=== PATIENT | male | born 1970 | race Caucasian/White ===

== ENCOUNTER 2022-12-21 16:24 | Outpatient (CLI) | payer MEDICAID, SELFPAY ==
[2022-12-21 14:34] LABS: Calculated LDL 107 mg/dL (<100); Cholesterol 217 mg/dL (<200); HDL Cholesterol 31 mg/dL (40-60); Triglyceride 398 mg/dL (<150)
[2022-12-22 10:19] LABS: Hepatitis C Ab w Rflx HCV PCR Negative (Negative)
[2022-12-22 11:09] LABS: HIV-1/2 Ag & Ab Screen Negative (Negative)
== END 2022-12-21 16:25 | disposition home or self-care (01) ==
LOC: LBO 16:24
PROVIDERS: Visit Provider Nurse Practitioner Family
DX: E78.5 Hyperlipidemia, unspecified (principal); Z11.4 Encounter for screening for human immunodeficiency virus [HIV]; Z11.59 Encounter for screening for other viral diseases
CPT/HCPCS: 36415; 80061; 86803; 87389

== ENCOUNTER 2023-03-18 08:54 | Emergency (ER) | payer MEDICAID, SELFPAY ==
[2023-03-18 08:58] VITALS: BP 113/90; PULSE 103; RESP 20; TEMP 36.3; O2SAT 96
--- OUTSIDE RECORDS SUMMARY | 2023-03-18 09:00 | XMS_ITS | Continuity of Care Document ---
Author Name Unknown Organization [facility] Address [address] [place] [address] Encounter LTTL_NM FIN [id number] [id number] Date(s): 12/05/22 - 12/13/22 [facility] [address] [place], [place] [address] Encounter Diagnosis Altered mental status(Discharge Diagnosis) - 12/06/22 Diabetes(Discharge Diagnosis) - 12/06/22 Bacteremia(Discharge Diagnosis) - 12/06/22 Hypertension(Discharge Diagnosis) - 12/13/22 Discharge Disposition: Home or Self Care Attending Physician: Douglas Turner MD Admitting Physician: Douglas Turner MD Allergies, Adverse Reactions, Alerts No Known Medication Allergies Functional Status 12/13/22 Living Environment Living Situation: [facility] with family care Current Home Treatments: Home Devices/Equipment Professional Skilled Services: Special Services and Community Resources: Sensory Deficits: Performed by: Kathrine Paulson-12/06/22 04:58:00 Lives With Family Living Situation Home with family car e 12/13/22 Lunch Percent 100 12/13/22 Activity Status ADL Up to toilet 12/11/22 ADLs Independent 12/09/22 Personal Care Provided Gown change, Partial bath 12/08/22 Breakfast Percent 100 12/06/22 Dinner Percent 100 12/06/22 Assistive Device Walker 12/06/22 Positioning/Pressure Reducing Devices Pi llow 12/06/22 Recent Travel History No recent travel Other exposure to Infectious Disease Non e Medications No Known Medications Mental Status 12/13/22 Eye Opening Response [place] Spontaneous ly Best Verbal Response [place] Oriented Best Motor Response [place] Obeys comman ds Gautam Coma Score 15 Problem List Condition Confirmation Course Effective Dates Status Health [facility] Informant Diabetes Confirmed Active Results Laboratory List Name Date SARS-CoV-2 (COVID-19) PCR ([facility]) (C OVID 19 ([facility])) 12/12/22 Glucose POCT 12/10/22 Glucose POCT 12/10/22 Glucose POCT 12/09/22 Automated Diff 12/07/22 CBC w/ Diff 12/07/22 Comprehensive Metabolic Panel (CMP) 12/07 C-Reactive Protein 12/06/22 Hgb A1c (Hemoglobin A1C) 12/06/22 Sedimentation Rate (ESR) 12/06/22 TSH w/ Rflx to Free T4 12/06/22 Vitamin B12 & Folate Level 12/06/22 Drug Screen Urine 12/05/22 Urinalysis with Micro if Indicated and C ulture if Indicated 12/05/22 Misc Lab order 12/05/22 Automated Diff 12/05/22 Alcohol Lvl 12/05/22 Beta Hydroxybutyrate 12/05/22 CBC w/ Diff 12/05/22 Comprehensive Metabolic Panel 12/05/22 Lactic Acid 12/05/22 Magnesium Level 12/05/22 PT/ INR 12/05/22 Troponin-I 12/05/22 pH Venous 12/05/22 Most recent to oldest [Reference Range]: 1 2 3 WBC [4.8-10.8 K/mcL] 8.7 K/mcL (12/07/22 6:40 AM) 10.7 K/mcL (12/05/22 5:18 PM) RBC [4.20-6.10 Million/mcL] 5.09 Million /mcL (12/07/22 6:40 AM) 5.21 Million/mcL (12/05/22 5:18 PM) Neutro Auto [42.2-75.2 %] 53.3 % (12/07/22 6:40 AM) 57.2 % (12/05/22 5:18 PM) Lymph Auto [20.5-51.1 %] 34.3 % (12/07/22 6:40 AM) 31.4 % (12/05/22 5:18 PM) [place] Auto [1.7-9.3 %] 9.4 % *HI* (12/07/22 6:40 AM) 9.3 % (12/05/22 5:18 PM) Basophil Auto [0.0-0.8 %] 0.8 % (12/07/22 6:40 AM) 0.7 % (12/05/22 5:18 PM) Prothrombin Time [9.1-10.6 seconds] 11.3 seconds *HI* (12/05/22 5:18 PM) INR [0.9-1.1] 1.1 (12/05/22 5:18 PM) BUN [8-26 mg/dL] 12 mg/dL (12/07/22 6:40 AM) 12 mg/dL (12/05/22 5:18 PM) Glucose POC 192 *NA* (12/10/22 12:55 PM) 237 *NA* (12/10/22 8:42 AM) 222 *NA* (12/09/22 4:35 PM) U Amph Scrn [Negative] Negative (12/05/22 9:00 PM) UA Color [Yellow] Yellow (12/05/22 9:00 PM) Glucose Level [74-106 mg/dL] 260 mg/dL *HI* (12/07/22 6:40 AM) 205 mg/dL *HI* (12/05/22 5:18 PM) Potassium Level [3.5-5.1 mmol/L] 3.8 mmol/L (12/07/22 6:40 AM) 3.2 mmol/L *LOW* (12/05/22 5:18 PM) Baso Absolute [0.0-0.2 K/mcL] 0.1 K/mcL (12/07/22 6:40 AM) 0.1 K/mcL (12/05/22 5:18 PM) U Benzodia Scrn [Negative] Negative (12/05/22 9:00 PM) MCV [80.0-94.0 fL] 89.0 fL (12/07/22 6:40 AM) 87.9 fL (12/05/22 5:18 PM) UA Urobilinogen [0.2] 0.2 (12/05/22 9:00 PM) UA Bili [Negative] Small *ABN* (12/05/22 9:00 PM) CRP [<=10.0 mg/L] 18.2 mg/L *HI* (12/06/22 6:30 AM) UA Ketones [Negative] 40 *ABN* (12/05/22 9:00 PM) AST [15-41 IntlUnit/L] 28 IntlUnit/L (12/07/22 6:40 AM) 35 IntlUnit/L (12/05/22 5:18 PM) ALT [17-63 IntlUnit/L] 33 IntlUnit/L (12/07/22 6:40 AM) 36 IntlUnit/L (12/05/22:18 PM) MCHC [32.0-36.0 g/dL] 33.1 g/dL (12/07/22 6:40 AM) 33.2 g/dL (12/05/22:18 PM) Osmolality [275-295 mOsm/kg] 279 mOsm/kg (12/07/22 6:40 AM) 270 mOsm/kg *LOW* (12/05/22:18 PM) Troponin-I [<=0.05 ng/mL] 0.01 ng/mL (12/05/22:18 PM) Sodium Level [134-143 mmol/L] 135 mmol/L (12/07/22 6:40 AM) 132 mmol/L *LOW* (12/05/22:18 PM) Folate Level [>=5.9 ng/mL] 17.1 ng/mL (12/06/22 6:30 AM) UA Leuk Est [Negative] Negative (12/05/22 9:00 PM) Lymph Absolute [1.2-3.4 K/mcL] 3.0 K/mcL (12/07/22 6:40 AM) 3.4 K/mcL (12/05/22:18 PM) UA Nitrite [Negative] Negative (12/05/22 9:00 PM) UA Glucose [Negative] Negative (12/05/22 9:00 PM) Hct [42.0-52.0 %] 45.3 % (12/07/22 6:40 AM) 45.8 % (12/05/22:18 PM) U Cocaine Scrn [Negative] Negative (12/05/22 9:00 PM) Calcium Level [8.9-10.3 mg/dL] 9.3 mg/dL (12/07/22 6:40 AM) 9.3 mg/dL (12/05/22 5:18 PM) [place] Absolute [0.1-0.6 K/mcL] 0.8 K/mcL *HI* (12/07/22 6:40 AM) 1.0 K/mcL *HI* (12/05/22 5:18 PM) Albumin Level [3.5-5.0 g/dL] 4.1 g/dL (12/07/22 6:40 AM) 4.3 g/dL (12/05/22 5:18 PM) Protein Total [6.5-8.1 g/dL] 7.7 g/dL (12/07/22 6:40 AM) 7.8 g/dL (12/05/22 5:18 PM) UA Protein [Negative] Negative (12/05/22 9:00 PM) MCH [27.0-31.0 pg] 29.5 pg (12/07/22 6:40 AM) 29.2 pg (12/05/22 5:18 PM) Magnesium Level [1.8-2.5 mg/dL] 2.1 mg/dL (12/05/22 5:18 PM) Neutro Absolute [1.4-6.5 K/mcL] 4.6 K/mcL (12/07/22 6:40 AM) 6.1 K/mcL (12/05/22 5:18 PM) Bilirubin Total [0.2-1.2 mg/dL] 0.4 mg/dL (12/07/22 6:40 AM) 0.7 mg/dL (12/05/22 5:18 PM) Hgb [14.0-18.0 g/dL] 15.0 g/dL (12/07/22 6:40 AM) 15.2 g/dL (12/05/22:18 PM) B12 Level [180-914 pg/mL] 784 pg/mL (12/06/22 6:30 AM) Alk Phos [38-130 IntlUnit/L] 73 IntlUnit /L (12/07/22 6:40 AM) 80 IntlUnit/L (12/05/22 5:18 PM) UA Blood [Negative] Negative (12/05/22 9:00 PM) MPV [7.4-10.4 fL] 10.8 fL *HI* (12/07/22 6:40 AM) 10.6 fL *HI* (12/05/22 5:18 PM) Ethanol Level [0.00-0.08 g/dL] see comment g/dL 1 *NA* (12/05/22:18 PM) UA Spec Grav >=1.030 *NA* (12/05/22 9:00 PM) Platelets [130-400 K/mcL] 280 K/mcL (12/07/22 6:40 AM) 278 K/mcL (12/05/22:18 PM) CO2 [22-32 mmol/L] 21 mmol/L *LOW* (12/07/22 6:40 AM) 23 mmol/L (12/05/22 5:18 PM) Eos Absolute [0.0-0.2 K/mcL] 0.1 K/mcL (12/07/22 6:40 AM) 0.1 K/mcL (12/05/22:18 PM) U Janet Scrn [Negative] Negative (12/05/22 9:00 PM) Lactic Acid Lvl [0.5-2.2 mmol/L] 1.0 mmol/L (12/05/22 5:18 PM) TSH [0.45-5.33 mIntlUnit/mL] 1.43 mIntlU nit/mL (12/06/22 6:30 AM) UA pH 5.00 *NA* (12/05/22 9:00 PM) pH Naeem [7.32-7.42 pH unit(s)] 7.51 pH unit(s) *HI* (12/05/22 5:18 PM) U Opiate Scrn [Negative] Negative (12/05/22 9:00 PM) eAvg Glucose 286 *NA* (12/06/22 6:30 AM) UA Appear [Clear] Clear (12/05/22 9:00 PM) Chloride Level [98-111 mmol/L] 108 mmol/L (12/07/22 6:40 AM) 99 mmol/L (12/05/22 5:18 PM) U Oxy Scrn [Negative] Negative (12/05/22 9:00 PM) U PCP Scrn [Negative] Negative (12/05/22 9:00 PM) RDW-CV [11.5-14.5 %] 13.0 % (12/07/22 6:40 AM) 12.9 % (12/05/22 5:18 PM) A/G Ratio 1.1 *NA* (12/07/22 6:40 AM) 1.2 *NA* (12/05/22 5:18 PM) BUN/Creat Ratio [8.0-20.0] 13.8 (12/07/22 6:40 AM) 15.4 (12/05/22 5:18 PM) Globulin 3.6 *NA* (12/07/22 6:40 AM) 3.5 *NA* (12/05/22 5:18 PM) U THC Scr [Negative] Negative (12/05/22 9:00 PM) U PPX Scr [Negative] Negative (12/05/22 9:00 PM) U Methadone Scr [Negative] Negative (12/05/22 9:00 PM) Imm Gran Absolute 0.10 *NA* (12/07/22 6:40 AM) 0.05 *NA* (12/05/22 5:18 PM) Imm Gran Auto [0.0-0.5 %] 1.1 % *HI* (12/07/22 6:40 AM) 0.5 % (12/05/22 5:18 PM) Urine Srce Clean Catch (12/05/22 9:00 PM) U Buprenorph Scr [Negative] Negative (12/05/22 9:00 PM) U mAMP Scr [Negative] Negative (12/05/22 9:00 PM) U TCA Scr [Negative] Negative (12/05/22 9:00 PM) Hgb A1c Percent [4.0-6.0 %] 11.6 % *HI* (12/06/22 6:30 AM) .Hb 14.5 g/dL *NA* (12/06/22 6:30 AM) .Hgb A1c 1.5 g/dL *NA* (12/06/22 6:30 AM) SARS-CoV-2 (COVID-19) PCR ([facility]) [Negative] Negative (12/12/22 12:00 PM) Creatinine Level [0.61-1.24 mg/dL] 0.87 mg/dL (12/07/22 6:40 AM) 0.78 mg/dL (12/05/22 5:18 PM) Employed in healthcare? No *NA* (12/12/22 12:00 PM) Symptomatic as defined by CDC? No *NA* (12/12/22 12:00 PM) Hospitalized due to COVID-19? No *NA* (12/12/22 12:00 PM) In ICU? No *NA* (12/12/22 12:00 PM) Group care resident? No *NA* (12/12/22 12:00 PM) status? Not *NA* (12/12/22 12:00 PM) Anion Gap [3.0-12.0] 6.0 (12/07/22 6:40 AM) 10.0 (12/05/22 5:18 PM) Beta-Hydroxybutyrate [0.02-0.27 mmol/L] 0.99 mmol/L *HI* (12/05/22 5:18 PM) Eos, Auto [0.00-3.00 %] 1.10 % (12/07/22 6:40 AM) 0.90 % (12/05/22 5:18 PM) Instr Ethanol Lvl [<=5 mg/dL] <5 mg/dL (12/05/22 5:18 PM) eGFR CKD-EPI [>=60 mL/min/1.73 m2] 105 mL/min/1.73 m2 (12/07/22 6:40 AM) 109 mL/min/1.73 m2 (12/05/22 5:18 PM) Miscellaneous Lab Test See scan report *NA* (12/05/22 5:29 PM) ESR, Westergren [0-15 mm/hr] 46 mm/hr *HI* (12/06/22 6:30 AM) 1Result Comment: Unable to calculate ratio value as result is less than the linear limit. Orders for Microbiology Reports Name Date Blood Culture 12/06/22 Blood Culture 12/06/22 Blood Culture 12/05/22 Blood Culture 12/05/22 Microbiology Reports TEST:Blood Culture STATUS:Auth (Verified) BODY SITE:Left Hand SOURCE:Peripheral Blood COLLECTED DATE/TIME:12/06/22 9:52 AM FINAL REPORT No growth at 5 days. TEST:Blood Culture STATUS:Auth (Verified) BODY SITE:Left Arm SOURCE:Peripheral Blood COLLECTED DATE/TIME:12/06/22 9:40 AM FINAL REPORT No growth at 5 days. TEST:Blood Culture STATUS:Auth (Verified) BODY SITE:Right Hand SOURCE:Blood COLLECTED DATE/TIME:12/05/22 5:29 PM FINAL REPORT No growth at 5 days. TEST:Blood Culture STATUS:Auth (Verified) BODY SITE:Right Arm SOURCE:Blood COLLECTED DATE/TIME:12/05/22 5:29 PM FINAL REPORT Gram Positive Bacilli Staphylococcus species (by PCR) Called and read back by Beckie Neely 12/06/2022 08:38:55/ns Coagulase Negative Staphylococcus. No further studies unless requested. Bacillus species, not anthracis. Susceptibility is not routinely performed for this organism/site. Testing performed by [facility]. STAIN REPORT Positive 12-24 hours Gram Positive Bacilli Gram Positive Cocci In 2 of 2 blood culture bottles drawn. Called and read back by Beckie Neely. 12/06/2022 07:48:20/ns Corrected report after PCR result and repeat gram stain called back to Beckie Neely. Radiology Reports * Exam Date Time Procedure Performing Provider Status 12/05/22 5:[address] Head w/o Contrast Jose Villalta; Auth (Verified) Notes: (CT Head w/o Contrast) Reason For Exam: Altered CT Head w/o Contrast PROCEDURE INFORMATION: Exam: CT Head Without Contrast Exam date and time: 12/05/2022 5:38 PM Age: 52 years old Clinical indication: Altered mental status/memory loss TECHNIQUE: Imaging protocol: Computed tomography of the head without contrast. Radiation optimization: All CT scans at this facility use at least one of these dose optimization techniques: automated exposure control; mA and/or kV adjustment per patient size (includes targeted exams where dose is matched to clinical indication); or iterative reconstruction. REPORTING DATA: Count of CT and Cardiac NM exams in prior 12 months: This patient has received 0 known CTs and 0 known cardiac nuclear medicine studies in the 12 months prior to the current study. COMPARISON: No relevant prior studies available. FINDINGS: Brain: No acute hemorrhage. Unremarkable white matter. No mass effect. Cerebral ventricles: No ventriculomegaly. Paranasal sinuses: Visualized sinuses are unremarkable. No fluid levels. Mastoid air cells: Visualized mastoid air cells are well aerated. Bones/joints: Unremarkable. No acute fracture. Soft tissues: Unremarkable. IMPRESSION: No acute intracranial process. THIS DOCUMENT HAS BEEN ELECTRONICALLY SIGNED BY BAY MARTINO MD on 12/05/2022 06:14 PM Final Signed by: Bay Martino MD Signed (Electronic Signature): 12/05/2022 6:14 pm Vital Signs Most recent to oldest [Reference Range]: 1 2 3 Temperature Oral [35.8-37.3 Deg C] 36.6 Deg C (12/09/22 2:02 PM) 36.9 Deg C (12/09/22 7:27 AM) Temperature Oral (DegF) [96.4-99.1 Deg F] 97.88 Deg F (12/09/22 2:02 PM) 98.42 Deg F (12/09/22 7:27 AM) Temperature Temporal Artery [36-38 Deg C] 36.4 Deg C (12/13/22 7:22 AM) 36.3 Deg C (12/12/22 7:47 PM) 36.5 Deg C (12/12/22 7:26 AM) Temperature Temporal Artery (DegF) [97.3-100 Deg F] 97.16 Deg F *LOW* (12/11/22 7:23 AM) 97.7 Deg F (12/11/22 1:12 AM) 97.7 Deg F (12/10/22 12:45 PM) Peripheral Pulse Rate [60-100 bpm] 87 bpm (12/10/22 12:45 PM) 96 bpm (12/10/22 7:45 AM) 80 bpm (12/09/22 8:18 PM) Heart Rate Monitored [60-100 bpm] 96 bpm (12/13/22 7:22 AM) 72 bpm (12/12/22 7:47 PM) 74 bpm (12/12/22 7:26 AM) Respiratory Rate [12-24 br/min] 18 br/min (12/13/22 7:22 AM) 18 br/min (12/12/22 7:47 PM) 17 br/min (12/12/22 7:26 AM) Blood Pressure [90-140/60-90 mmHg] 137/90mmHg (12/13/22 7:22 AM) 126/70mmHg (12/12/22 7:47 PM) 118/64mmHg (12/12/22 7:26 AM) Mean Arterial Pressure, Cuff [65-140 mmHg] 98 mmHg (12/11/22 7:23 AM) 89 mmHg (12/09/22 8:18 PM) 112 mmHg (12/09/22 2:02 PM) Mean Arterial Pressure Cuff 77 mmHg (12/12/22 7:26 AM) 105 mmHg (12/05/22 11:28 PM) Blood Pressure Location Left arm (12/11/22 7:23 AM) Left arm (12/11/22 1:12 AM) Left arm (12/10/22 12:45 PM) Blood Pressure Method Automatic (12/08/22 10:59 PM) Automatic (12/08/22 5:02 PM) Automatic (12/08/22 7:12 AM) Weight Dosing 135.00 kg (12/05/22 5:27 PM) Weight Estimated 135.00 kg (12/05/22 5:02 PM) Height/Length Dosing 183.000 cm (12/05/22 5:27 PM) Height/Length Estimated 183.000 cm (12/05/22 5:02 PM) Social History Social History Type Response Tobacco Tobacco use status u nknown Tobacco Use:. Sex Hospital Discharge Instructions Patient Education 12/13/2022 10:58:25 Caring for Your Mental Health Caring for Your Mental Health Mental health is emotional, psychological, and social well-being. Mental health is just as important as physical health. In fact, mental and physical health are connected, and you need both to be healthy. Some signs of good mental health (well-being) include: ??? Being able to attend to tasks at home, school, or work. ??? Being able to manage stress and emotions. ??? Practicing self-care, which may include: ??? A regular exercise pattern. ??? A reasonably healthy diet. ??? Supportive and trusting relationships. ??? The ability to relax and calm yourself (self-calm). ??? Having pleasurable hobbies and activities to do. ??? Believing that you have meaning and purpose in your life. ??? Recovering and adjusting after facing challenges (resilience). You can take steps to build or strengthen these mentally healthy behaviors. There are resources andsupport to help you with this. Why is caring for mental health important? Caring for your mental health is a big part of staying healthy. Everyone has times when feelings, thoughts, or situations feel overwhelming. Mental health means having the skills to manage what feelsoverwhelming. If this sense of being overwhelmed persists, however, you might need some help. If you have some of the following signs, you may need to take better care of your mental health or seek help from a health care provider or mental health professional: ??? Problems with energy or focus. ??? Changes in eating habits. ??? Problems sleeping, such as sleeping too much or not enough. ??? Emotional distress, such as anger, sadness, depression, or anxiety. ??? Major changes in your relationships. ??? Losing interest in life or activities that you used to enjoy. If you have any of these symptoms on most days for 2 weeks or longer: ??? Talk with a close friend or family member about how you are feeling. ??? Contact your health care provider to discuss your symptoms. ??? Consider working with a mental health professional. Your health care provider, family, or friends may be able to recommend a therapist. What can I do to promote emotional and mental health? Managing emotions ??? Learn to identify emotions and deal with them. Recognizing your emotions is the first step in learning to deal with them. ??? Practice ways to appropriately express feelings. Remember that you can control your feelings. They do not control you. ??? Practice stress management techniques, such as: ??? Relaxation techniques, like breathing or muscle relaxation exercises. ??? Exercise. Regular activity can lower your stress level. ??? Changing what you can change and accepting what you cannot change. ??? Build up your resilience so that you can recover and adjust after big problems or challenges. Practice resilient behaviors and attitudes: ??? Set and focus on long-term goals. ??? Develop and maintain healthy, supportive relationships. ??? Learn to accept change and make the best of the situation. ??? Take care of yourself physically by eating a healthy diet, getting plenty of sleep, and exercising regularly. ??? Develop self-awareness. Ask others to give feedback about how they see you. ??? Practice mindfulness meditation to help you stay calm when dealing with daily challenges. ??? Learn to respond to situations in healthy ways, rather than reacting with your emotions. ??? Keep a positive attitude, and believe in yourself. Your view of yourself affects your mental health. ??? Develop your listening and empathy skills. These will help you deal with difficult situations and communications. ??? Remember that emotions can be used as a good source of communication and are a great source of energy. Try to laugh and find humor in life. Sleeping ??? Get the right amount and quality of sleep. Sleep has a big impact on physical and mental health. To improve your sleep: ??? Go to bed and wake up around the same time every day. ??? Limit screen time before bedtime. This includes the use of your cell phone, TV, computer, and tablet. ??? Keep your bedroom dark and cool. Activity ??? Exercise or do some physical activity regularly. This helps: ??? Keep your body strong, especially during times of stress. ??? Get rid of chemicals in your body (hormones) that build up when you are stressed. ??? Build up your resilience. Eating and drinking ??? Eat a healthy diet that includes whole grains, vegetables, fresh fruits, and lean proteins. If you have questions about what foods are best for you, ask your health care provider. ??? Try not to turn to sweet, salty, or otherwise unhealthy foods when you are tired or unhappy. This can lead to unwanted weight gain and is not a healthy way to cope with emotions. Where to find more information You can find more information about how to care for your mental health from: ??? National [place] on Mental Illness (KARLOS): www.karlos.org ??? National [place] of Mental Health: www.nimh.nih.gov ??? Centers for Disease Control and Prevention: www.cdc.gov/hrqol/wellbeing.htm Contact a health care provider if: ??? You lose interest in being with others or you do not want to leave the house. ??? You have a hard time completing your normal activities or you have less energy than normal. ??? You cannot stay focused or you have problems with memory. ??? You feel that your senses are heightened, and this makes you upset or concerned. ??? You feel nervous or have rapid mood changes. ??? You are sleeping or eating more or less than normal. ??? You question reality or you show odd behavior that disturbs you or others. Get help right away if: ??? You have thoughts about hurting yourself or others. If you ever feel like you may hurt yourself or others, or have thoughts about taking your own life,get help right away. You can go to your nearest emergency department or call: ??? Your local emergency services (911 in the [place] ??? A suicide crisis helpline, such as the National Suicide Prevention Lifeline at . This is open 24 hours a day. Summary ??? Mental health is not just the absence of mental illness. It involves understanding your emotions and behaviors, and taking steps to cope with them in a healthy way. ??? If you have symptoms of mental or emotional distress, get help from family, friends, a health care provider, or a mental health professional. ??? Practice good mental health behaviors such as stress management skills, self-calming skills, exercise, and healthy sleeping and eating. This information is not intended to replace advice given to you by your health care provider. Make sure you discuss any questions you have with your health care provider. Document Revised: 10/27/2021 Document Reviewed: 01/28/2021 [employer] Patient Education ?? 2021 [employer]. Follow Up Care 12/05/2022 17:02:56 With:Cristina Paniagua Address: When:12/21/2022 12:00:00 Comments:at [facility] Discharge instructions * Marla Perry: PERFORM Event Display: Discharge Instructions Authored Date: [id number] ARNALDO TAPIA :1970 Age:52 years Sex:Male Visit Date:12/05/2022 Hospital Discharge Instructions We would like to thank you for allowing us to assist you with your healthcare needs. The following includes patient education materials and information regarding your injury/illness. Your Next Steps Follow Up Appointments Follow Up with??Cristina Paniagua When:??12/21/2022 01:00 PM EDT Why: at [facility] Medications What How Much When Comments Stop Taking aspirin (Aspirin Low Dose 81 mg oral delayed release tablet) 1 tab Oral (given by mouth) Every day Stop Taking fluticasone nasal (fluticasone 50 mcg/ inh nasal spray) 1 Sprays Nasal (into the nose) 2 times a day Stop Taking lisinopril (lisinopril 10 mg oral tablet) 1 tab Oral (given by mouth) Every day Stop Taking omeprazole (omeprazole 10 mg oral delayed release capsule) 1 Capsules Oral (given by mouth) Every day as needed for diarrhea Stop Taking omeprazole (omeprazole 20 mg oral delayed release capsule) 1 Capsules Oral (given by mouth) Every day as needed for constipation Stop Taking semaglutide (Ozempic (1 mg dose) 4 mg/ 3 mL subcutaneous solution) 0.75 Milligrams Subcutaneous (under the skin) Every week Your Summary Your Care Team Admitting Physician - Douglas Turner MD Attending Physician - Douglas Turner MD Your Diagnosis Altered mental status Diabetes Bacteremia Hypertension Problems Ongoing - Any problem that you are currently receiving treatment for. Diabetes Tests Performed/Pending Alcohol Lvl Automated Diff Beta Hydroxybutyrate C-Reactive Protein CBC w/ Diff CMP Comprehensive Metabolic Panel COVID 19 ([facility]pert) Drug Screen Urine Glucose POCT Hemoglobin A1C Lactic Acid Magnesium Level Misc Lab order pH Venous PT/ INR Sedimentation Rate (ESR) Troponin-I TSH w/ Rflx to Free T4 Urinalysis with Micro if Indicated and Culture if Indicated Vitamin B12 & Folate Level CT Head w/o Contrast MRI Brain w/ + w/o Contrast?-- Results Pending -- Discharge Vitals Temperature??(Temporal Artery) 97.5 ??F (36.4 ??C) Heart Rate??(Monitored) 96 Respiratory Rate?? 18 Blood Pressure?? 137/90?? Allergies No Known Medication Allergies Education Materials Caring for Your Mental Health Mental health is emotional, psychological, and social well-being. Mental health is just as important as physical health. In fact, mental and physical health are connected, and you need both to be healthy. Some signs of good mental health (well-being) include: ? Being able to attend to tasks at home, school, or work. ? Being able to manage stress and emotions. ? Practicing self-care, which may include: ? A regular exercise pattern. ? A reasonably healthy diet. ? Supportive and trusting relationships. ? The ability to relax and calm yourself (self-calm). ? Having pleasurable hobbies and activities to do. ? Believing that you have meaning and purpose in your life. ? Recovering and adjusting after facing challenges (resilience). You can take steps to build or strengthen these mentally healthy behaviors. There are resources andsupport to help you with this. Why is caring for mental health important? Caring for your mental health is a big part of staying healthy. Everyone has times when feelings, thoughts, or situations feel overwhelming. Mental health means having the skills to manage what feelsoverwhelming. If this sense of being overwhelmed persists, however, you might need some help. If you have some of the following signs, you may need to take better care of your mental health or seek help from a health care provider or mental health professional: ? Problems with energy or focus. ? Changes in eating habits. ? Problems sleeping, such as sleeping too much or not enough. ? Emotional distress, such as anger, sadness, depression, or anxiety. ? Major changes in your relationships. ? Losing interest in life or activities that you used to enjoy. If you have any of these symptoms on most days for 2 weeks or longer: ? Talk with a close friend or family member about how you are feeling. ? Contact your health care provider to discuss your symptoms. ? Consider working with a mental health professional. Your health care provider, family, or friends may be able to recommend a therapist. What can I do to promote emotional and mental health? Managing emotions ? Learn to identify emotions and deal with them. Recognizing your emotions is the first step in learning to deal with them. ? Practice ways to appropriately express feelings. Remember that you can control your feelings. They do not control you. ? Practice stress management techniques, such as: ? Relaxation techniques, like breathing or muscle relaxation exercises. ? Exercise. Regular activity can lower your stress level. ? Changing what you can change and accepting what you cannot change. ? Build up your resilience so that you can recover and adjust after big problems or challenges. Practice resilient behaviors and attitudes: ? Set and focus on long-term goals. ? Develop and maintain healthy, supportive relationships. ? Learn to accept change and make the best of the situation. ? Take care of yourself physically by eating a healthy diet, getting plenty of sleep, and exercising regularly. ? Develop self-awareness. Ask others to give feedback about how they see you. ? Practice mindfulness meditation to help you stay calm when dealing with daily challenges. ? Learn to respond to situations in healthy ways, rather than reacting with your emotions. ? Keep a positive attitude, and believe in yourself. Your view of yourself affects your mental health. ? Develop your listening and empathy skills. These will help you deal with difficult situations and communications. ? Remember that emotions can be used as a good source of communication and are a great source of energy. Try to laugh and find humor in life. Sleeping ? Get the right amount and quality of sleep. Sleep has a big impact on physical and mental health. Toimprove your sleep: ? Go to bed and wake up around the same time every day. ? Limit screen time before bedtime. This includes the use of your cell phone, TV, computer, and tablet. ? Keep your bedroom dark and cool. Activity ? Exercise or do some physical activity regularly. This helps: ? Keep your body strong, especially during times of stress. ? Get rid of chemicals in your body (hormones) that build up when you are stressed. ? Build up your resilience. Eating and drinking ? Eat a healthy diet that includes whole grains, vegetables, fresh fruits, and lean proteins. If you have questions about what foods are best for you, ask your health care provider. ? Try not to turn to sweet, salty, or otherwise unhealthy foods when you are tired or unhappy. This can lead to unwanted weight gain and is not a healthy way to cope with emotions. Where to find more information You can find more information about how to care for your mental health from: ? National [place] on Mental Illness (KARLOS): www.karlos.org ? National [place] of Mental Health: www.nimh.nih.gov ? Centers for Disease Control and Prevention: www.cdc.gov/hrqol/wellbeing.htm Contact a health care provider if: ? You lose interest in being with others or you do not want to leave the house. ? You have a hard time completing your normal activities or you have less energy than normal. ? You cannot stay focused or you have problems with memory. ? You feel that your senses are heightened, and this makes you upset or concerned. ? You feel nervous or have rapid mood changes. ? You are sleeping or eating more or less than normal. ? You question reality or you show odd behavior that disturbs you or others. Get help right away if: ? You have thoughts about hurting yourself or others. If you ever feel like you may hurt yourself or others, or have thoughts about taking your own life,get help right away. You can go to your nearest emergency department or call: ? Your local emergency services (911 in the [place] ? A suicide crisis helpline, such as the National Suicide Prevention Lifeline at . Thisis open 24 hours a day. Summary ? Mental health is not just the absence of mental illness. It involves understanding your emotions and behaviors, and taking steps to cope with them in a healthy way. ? If you have symptoms of mental or emotional distress, get help from family, friends, a health care provider, or a mental health professional. ? Practice good mental health behaviors such as stress management skills, self- calming skills, exercise, and healthy sleeping and eating. This information is not intended to replace advice given to you by your health care provider. Make sure you discuss any questions you have with your health care provider. Document Revised: 10/27/2021 Document Reviewed: 01/28/2021 Elsevier Patient Education ?? 2021 Elsevier Inc. Patient Name:ARNALDO TAPIA I have received this information and my questions have been answered. Patient/Precision Dancer Name: Patient/Precision Dancer Signature: Relationship to Patient: Witness Name/Signature: Date: Electronically Signed on: 12/13/2022 12:00 EDTSigned by:JL * Event Display: Discharge Instructions conference center manager Note * Event Display: Case Management Note Physician Emergency department Note * Michael Drummond MD: PERFORM Event Display: ED Note Physician Authored Date: [id number] ARNALDO TAPIA :1970 Age:52 years Sex:Male Visit Date:12/05/2022 Basic Information Time Seen: Michael Drummond MD / 12/05/2022 17:10 Chief Complaint pt to ED family reports slurred speech and pain in legs since . pt reports suicidal ideation History Of Present Illness: 52-year-old male??presents to the emergency department with his sister due to worsening??abnormal behavior felt to be primarily psychiatric by sister.?? The patient's condition is significantly worsened after his brother was released from [facility].?? The patient has been??not taking care of himself, not taking his medication,??mumbling to himself,??and expressing suicidal ideation.?? This got significantly worse today where he was??not responding to his family, mumbling incoherently,??and sleeping to stumble.?? The onset of symptoms was slow in over 1 week.?? He had recently stopped metformin due to GI upset.?? His sister states that she does not believe he has taken any abnormal substances or drugs but states this is possible.?? She denies significant alcohol consumption. Review of Systems: Review of??systems is taken from the sister as the patient is unable to give a history constitutional:??No fevers, chills, sweats Eye:??No recent visual problems ENT:??No ear pain, nasal congestion, sore throat Respiratory:??No shortness of breath, cough Cardiovascular:??No chest pain, palpitations, syncope Gastrointestinal:??No nausea, vomiting, diarrhea, constipation Genitourinary:??No hematuria, or other concerning urinary symptoms Antwon/Lymph:??Negative for bruising tendency, swollen lymph glands Endocrine:??Negative for excessive thirst, excessive hunger Integumentary:??No rash, pruritus, abrasions Physical Exam Vitals & Measurements T:??36.3?C ??(Temporal Artery)?? HR:??90??(Peripheral)?? RR:??16?? BP:??132/110?? SpO2:??98%?? HT:??183.000??cm?? WT:??135.00??kg??(Estimated)?? O2 Therapy:??Room air?? Exam reveals an obese??male who appears to have an altered mental state. ??He is repeatedly talkingin a soft voice. ??Poor eye contact.?? At times hard to understand. ??At times repeats statements about being in his room, not wanting to be with his mother,??with mild agitation Vital signs are unremarkable Head neck exam reveals pupils that are 4 mm equal and reactive to light with normal extraocular movements.?? Oropharynx is??slightly dry. ??Neck is supple without adenopathy or JVD. His chest is clear without wheezes or crackles but reduced breath sounds throughout. ??His heart sounds are regular without murmur or extra sound. ??His abdomen is soft obese nontender with active bowel sounds. ??His extremities are without edema. ??He moves both lower extremities. ??He walks and unattended without difficulty according to nursing who observed him.?? Reflexes are equal and symmetric. ??Sensation is equal and symmetric. ??He denies any??loss of continence or??loss of urinary, penile, or??anal tone or??sensation. Medical Decision Making: This patient presents??with an acute psychiatric crisis according to his sister and examination seems to support this. ??Comprehensive medical work-up is unremarkable??other than borderline beta hydroxybutyrate.?? Fluid hydration seem to improve his condition. ??He was reassessed??after laboratory work continue to mumble but was more coherent.?? He did answer questions but was easily diverted andhad tangential thinking. Procedure No Qualifying Data Reexamination/Reevaluation Was reexamined twice over the course of his ED stay and his condition mildly improved although he did not seem prepared for comprehensive psychiatric assessment. Assessment/Plan 1.??Suicidal ideation??R45.851 Per sister. ??Clearly not able to care for self presently.?? Will require psychiatric assessment and support.?? Presently??appears to have an acute mental health crisis without evidence of significant??metabolic or physical abnormality. Orders: Normal Saline Flush, 10 mL, IV Flush, Injection, As Directed, PRN facepiece line supervisor, First Dose: 12/05/22 17:23:00 EDT, Routine Sodium Chloride 0.9% 1,000 mL, Total Volume (mL): 1,000, 1,000 mL, Soln-IV, IV, 150 mL/hr, Order Duration: 30 days, Start Date: 12/05/22 19:05:00 EDT, Stop Date: 01/04/23 19:04:00 EDT, 135 kg, Populate Charting Weight From Order, 2.62, m2 Blood Culture, Blood, Arm R, Stat collect, ST - Stat, 12/05/22 17:23:00 EDT, Once, Nurse collect, Print Label Blood Culture, Blood, Hand R, Stat collect, ST - Stat, 12/05/22 17:23:00 EDT, Once, Nurse collect, Print Label Peripheral IV Insertion, 12/05/22 17:23:00 EDT Vital Signs, 12/05/22 17:23:00 EDT, Once, Stop date 12/05/22 17:23:00 EDT, Q15min until stable and SBP greater than 90, then Q1hour [facility] kindly accepted the patient??for admission Medication Reconciliation Unchanged aspirin (Aspirin Low Dose 81 mg oral delayed release tablet)1 tab Oral (given by mouth) every day. ?? fluticasone nasal (fluticasone 50 mcg/inh nasal spray)1 Sprays Nasal (into the nose) 2 times a day. ?? lisinopril (lisinopril 10 mg oral tablet)1 tab Oral (given by mouth) every day. ?? omeprazole (omeprazole 20 mg oral delayed release capsule)1 Capsules Oral (given by mouth) every day as needed constipation. ?? semaglutide (Ozempic (1 mg dose) 4 mg/3 mL subcutaneous solution)0.75 Milligrams Subcutaneous (under the skin) every week. Problem List/Past Medical History Ongoing No qualifying data Historical No qualifying data Medication Administration Given Sodium Chloride 0.9%, 1000 mL, Hydration Bolus Sodium Chloride 0.9%, 1000 mL, IV Sodium Chloride 0.9%, 500 mL, IV Bolus Allergies No Known Medication Allergies Social History Electronic Cigarette/Vaping Electronic Cigarette Use: Unknown/not obtained. Substance Use Past Tobacco Tobacco use status unknown Tobacco Use:. Diagnostic Results CT Head w/o Contrast 12/05/2022 18:[address] Head w/o Contrast ?? 12/05/22 17:38:12 PROCEDURE INFORMATION: Exam: CT Head Without Contrast Exam date and time: 12/05/2022 5:38 PM Age: 52 years old Clinical indication: Altered mental status/memory loss ?? TECHNIQUE: Imaging protocol: Computed tomography of the head without contrast. Radiation optimization: All CT scans at this facility use at least one of these dose optimization techniques: automated exposure control; mA and/or kV adjustment per patient size (includes targeted exams where dose is matched to clinical indication); or iterative reconstruction. ?? REPORTING DATA: Count of CT and Cardiac NM exams in prior 12 months: This patient has received 0 known CTs and 0 known cardiac nuclear medicine studies in the 12 months prior to the current study. ?? COMPARISON: No relevant prior studies available. ?? FINDINGS: Brain: No acute hemorrhage. Unremarkable white matter. No mass effect. Cerebral ventricles: No ventriculomegaly. Paranasal sinuses: Visualized sinuses are unremarkable. No fluid levels. Mastoid air cells: Visualized mastoid air cells are well aerated. ?? Bones/joints: Unremarkable. No acute fracture. Soft tissues: Unremarkable. ?? IMPRESSION: No acute intracranial process. ? THIS DOCUMENT HAS BEEN ELECTRONICALLY SIGNED BY BAY MARTINO MD on 12/05/2022 06:14 PM ?? Signed By: Bay Martino MD Lab Results Blood Gases?? LATEST RESULTS?? pH Naeem?? 12/05/22 17:18?? 7.51 ??High? CBC and Differential?? LATEST RESULTS?? WBC?? 12/05/22 17:18?? 10.7?? RBC?? 12/05/22 17:18?? 5.21?? Hgb?? 12/05/22 17:18?? 15.2?? Hct?? 12/05/22 17:18?? 45.8?? MCV?? 12/05/22 17:18?? 87.9?? MCH?? 12/05/22 17:18?? 29.2?? MCHC?? 12/05/22 17:18?? 33.2?? RDW-CV?? 12/05/22 17:18?? 12.9?? Platelets?? 12/05/22 17:18?? 278?? MPV?? 12/05/22 17:18?? 10.6 ??High?? Neutro Auto?? 12/05/22 17:18?? 57.2?? Lymph Auto?? 12/05/22 17:18?? 31.4?? [place] Auto?? 12/05/22 17:18?? 9.3?? Eos, Auto?? 12/05/22 17:18?? 0.90?? Basophil Auto?? 12/05/22 17:18?? 0.7?? Imm Gran Auto?? 12/05/22 17:18?? 0.5?? Neutro Absolute?? 12/05/22 17:18?? 6.1?? Lymph Absolute?? 12/05/22 17:18?? 3.4?? [place] Absolute?? 12/05/22 17:18?? 1.0 ??High?? Eos Absolute?? 12/05/22 17:18?? 0.1?? Baso Absolute?? 12/05/22 17:18?? 0.1?? Imm Gran Absolute?? 12/05/22 17:18?? 0.05? Coagulation?? LATEST RESULTS?? Prothrombin Time?? 12/05/22 17:18?? 11.3 ??High?? INR?? 12/05/22 17:18?? 1.1? Routine Chemistry?? LATEST RESULTS?? Sodium Level?? 12/05/22 17:18?? 132 ??Low?? Potassium Level?? 12/05/22 17:18?? 3.2 ??Low?? Chloride Level?? 12/05/22 17:18?? 99?? CO2?? 12/05/22 17:18?? 23?? Alk Phos?? 12/05/22 17:18?? 80?? AST?? 12/05/22 17:18?? 35?? ALT?? 12/05/22 17:18?? 36?? BUN?? 12/05/22 17:18?? 12?? Glucose Level?? 12/05/22 17:18?? 205 ??High?? Creatinine Level?? 12/05/22 17:18?? 0.78?? BUN/Creat Ratio?? 12/05/22 17:18?? 15.4?? Calcium Level?? 12/05/22 17:18?? 9.3?? Protein Total?? 12/05/22 17:18?? 7.8?? Albumin Level?? 12/05/22 17:18?? 4.3?? Globulin?? 12/05/22 17:18?? 3.5?? A/G Ratio?? 12/05/22 17:18?? 1.2?? Bilirubin Total?? 12/05/22 17:18?? 0.7?? Anion Gap?? 12/05/22 17:18?? 10.0?? Beta-Hydroxybutyrate?? 12/05/22 17:18?? 0.99 ??High?? Lactic Acid Lvl?? 12/05/22 17:18?? 1.0?? Magnesium Level?? 12/05/22 17:18?? 2.1?? Osmolality?? 12/05/22 17:18?? 270 ??Low?? Glucose POC?? 12/05/22 17:10?? 201?? eGFR CKD-EPI?? 12/05/22 17:18?? 109? Cardiac Isoenzymes?? LATEST RESULTS?? Troponin-I?? 12/05/22 17:18?? 0.01? Serum Toxicology?? LATEST RESULTS?? Ethanol Level?? 12/05/22 17:18?? see comment?? Instr Ethanol Lvl?? 12/05/22 17:18?? <5? Urine Toxicology?? LATEST RESULTS?? U Amph Scrn?? 12/05/22 21:00?? Negative?? U Janet Scrn?? 12/05/22 21:00?? Negative?? U Benzodia Scrn?? 12/05/22 21:00?? Negative?? U Buprenorph Scr?? 12/05/22 21:00?? Negative?? U Cocaine Scrn?? 12/05/22 21:00?? Negative?? U TCA Scr?? 12/05/22 21:00?? Negative?? U THC Scr?? 12/05/22 21:00?? Negative?? U mAMP Scr?? 12/05/22 21:00?? Negative?? U Methadone Scr?? 12/05/22 21:00?? Negative?? U Opiate Scrn?? 12/05/22 21:00?? Negative?? U Oxy Scrn?? 12/05/22 21:00?? Negative?? U PCP Scrn?? 12/05/22 21:00?? Negative?? U PPX Scr?? 12/05/22 21:00?? Negative? UA Macroscopic?? LATEST RESULTS?? Urine Srce?? 12/05/22 21:00?? Clean Catch?? UA Color?? 12/05/22 21:00?? Yellow?? UA Appear?? 12/05/22 21:00?? Clear?? UA Glucose?? 12/05/22 21:00?? Negative?? UA Bili?? 12/05/22 21:00?? Small Abnormal?? UA Ketones?? 12/05/22 21:00?? 40 Abnormal?? UA Spec Grav?? 12/05/22 21:00?? >=1.030?? UA Blood?? 12/05/22 21:00?? Negative?? UA pH?? 12/05/22 21:00?? 5.00?? UA Protein?? 12/05/22 21:00?? Negative?? UA Urobilinogen?? 12/05/22 21:00?? 0.2?? UA Nitrite?? 12/05/22 21:00?? Negative?? UA Leuk Est?? 12/05/22 21:00?? Negative? Electronically Signed on 12/05/22 09:33 PM Michael Drummond MD Nutrition and dietetics Progress note * Kathy Clark: PERFORM Event Display: Nutrition Note Authored Date: [id number] Assessment and Monitoring Initial Nutrition Assessment ?? 52 yo M admit IEA. AMS, ?possible bacteremia. Does have DM, A1c >11%. Sounds like stopped taking metformin d/t symptoms. On SSI here. Blood sugars??in the 200s. ??Is eating well here, 100% of meals. Unsure of weight history. Likely meeting needs here. Continue monitor blood sugars/intakes. May need to adjust DM meds for better glycemic control. Skin intact. Labs noted. Nutrition Diagnosis decreased carbohydrate needs r/t impaired insulin production, ?excessive Carb intake??as evidenced by A1c 11.6% and need for exogenous insulin. Nutrition Goals No s/sx hyper,hypoglycemia Labs WNL Skin w/o open areas Pos >75% of meals Nutrition Interventions Continue current diet assist room service/meal set up ?adjust dm meds Reason for Visit IEA Problem List/Past Medical History Ongoing Diabetes Historical No qualifying data Social History Electronic Cigarette/Vaping Electronic Cigarette Use: Unknown/not obtained. Substance Use Past Tobacco Tobacco use status unknown Tobacco Use:. Diet Orders Diet Order, 12/06/22 0:34:00 EDT, Regular, consistent carbs, safety utensils Allergies No Known Medication Allergies Nutrition Lab Results Test Name Test Result Date/Time WBC 8.7 K/mcL 12/07/2022 06:40 EDT Hgb 15.0 g/dL 12/07/2022 06:40 EDT Hct 45.3 % 12/07/2022 06:40 EDT MCV 89.0 fL 12/07/2022 06:40 EDT Platelets 280 K/mcL 12/07/2022 06:40 EDT INR 1.1 12/05/2022 17:18 EDT Sodium Level 135 mmol/L 12/07/2022 06:40 EDT Potassium Level 3.8 mmol/L 12/07/2022 06:40 EDT Chloride Level 108 mmol/L 12/07/2022 06:40 EDT CO2 21 mmol/L 12/07/2022 06:40 EDT Alk Phos 73 IntlUnit/L 12/07/2022 06:40 EDT ALT 33 IntlUnit/L 12/07/2022 06:40 EDT BUN 12 mg/dL 12/07/2022 06:40 EDT Glucose Level 260 mg/dL 12/07/2022 06:40 EDT Creatinine Level 0.87 mg/dL 12/07/2022 06:40 EDT Albumin Level 4.1 g/dL 12/07/2022 06:40 EDT Bilirubin Total 0.4 mg/dL 12/07/2022 06:40 EDT Magnesium Level 2.1 mg/dL 12/05/2022 17:18 EDT Medications Inpatient aspirin, 81 mg= 1 tab, Oral, Daily Dextrose 50% injection, 25 g= 50 mL, IV Push, As Directed enoxaparin, 40 mg= 0.4 mL, Subcutaneous, Daily fluticasone 50 mcg/inh nasal spray, 50 mcg= 1 sprays, Nasal, BID glucagon, 1 mg= 1 EA, Subcutaneous, As Directed insulin aspart Sliding Scale - Low Dose, Insulin Aspart Sliding Scale See Comment, Subcutaneous, AC lisinopril, 10 mg= 1 tab, Oral, Daily Normal Saline Flush, 10 mL, IV Flush, As Directed, PRN pantoprazole, 40 mg= 1 tab, Oral, Daily Tylenol, 650 mg= 2 tab, Oral, every 4 hr, PRN Home Aspirin Low Dose 81 mg oral delayed release tablet, 81 mg= 1 tab, Oral, every morning fluticasone 50 mcg/inh nasal spray, 1 sprays, Nasal, BID, PRN lisinopril 10 mg oral tablet, 10 mg= 1 tab, Oral, every morning omeprazole 10 mg oral delayed release capsule, 10 mg= 1 cap, Oral, Daily, PRN Ozempic (1 mg dose) 4 mg/3 mL subcutaneous solution, 1 mg, Subcutaneous, Monday Electronically Signed on 12/09/22 03:01 PM Kathy Clark Progress note * Douglas Turner MD: PERFORM Event Display: Progress Note - Physician Authored Date: [id number] ARNALDO TAPIA :1970 Age:52 years Sex:Male Visit Date:12/05/2022 Male with decompensated??mental health disorder??with history of adjustment disorder and depression.?? He remains medically cleared. ??Note that he had a??brain been medically cleared because he had to wait??about 4 days for blood cultures to return from [facility]. ??These have been confirmed to be contaminant??and or not infection he has not been on any treatments he has been afebrile.?? He has been walking around without difficulty he does some??chronic back pain but nothing that is??acute.?? He is still working with [employer] remains on a medical hold??well behaved with no issues. Electronically Signed on 12/12/22 12:31 PM Douglas Turner MD * Douglas Turner MD: PERFORM Event Display: Progress Note - Physician Authored Date: [id number] ARNALDO TAPIA :1970 Age:52 years Sex:Male Visit Date:12/05/2022 Objective Vitals & Measurements T:??36.2?C ??(Temporal Artery)?? TMIN:??36.2?C ??(Temporal Artery)?? TMAX:??36.5?C ??(Temporal Artery)?? HR:??87??(Monitored)?? RR:??18?? BP:??122/86?? SpO2:??97%?? Pain Score:??0?? O2 Therapy:??Room air?? Assessment/Plan 1.??Altered mental status??R41.82 Remains medically cleared favor psychiatric causes on IEA now. 2.??Diabetes??E11.9 3.??Bacteremia??R78.81 Contaminant no further work-up no treatment 4.??Chest pain??R07.9 Electronically Signed on 12/11/22 12:05 PM Douglas Turner MD * Douglas Turner MD: PERFORM, MODIFY Event Display: Progress Note - Physician Authored Date: [id number] ARNALDO TAPIA :1970 Age:52 years Sex:Male Visit Date:12/05/2022 Subjective pt reports some dizziness and chest pressure, pointing to his mid abdomen Objective Vitals & Measurements T:??36?C ??(Temporal Artery)?? TMIN:??36?C ??(Temporal Artery)?? TMAX:??36.6?C ??(Oral)?? HR:??96??(Peripheral)?? RR:??16?? BP:??119/85?? SpO2:??97%?? Pain Score:??0?? O2 Therapy:??Room air?? Physical Exam General:??Alert and oriented, well nourished, No acute distress Eye:??PERRL, EOMI, normal conjunctiva Lungs:??Clear to auscultation and percussion, Non-labored respiration Heart:??Normal rate, Normal rhythm, No murmur, No gallop Abdomen:??Soft, non-tender, non-distended, normal bowel sounds, no masses Assessment/Plan 1.??Altered mental status??R41.82 Continuing to favor psychiatric??causes??now medically cleared see below. Ordered: Electrocardiogram, 12/10/22 9:45:00 EDT, Angina-Chronic, Stop date 12/10/22 9:45:00 EDT, Altered mental status Suicidal ideation Diabetes Bacteremia ?? 2.??Diabetes??E11.9 Continue at home medications Ordered: Electrocardiogram, 12/10/22 9:45:00 EDT, Angina-Chronic, Stop date 12/10/22 9:45:00 EDT, Altered mental status Suicidal ideation Diabetes Bacteremia ?? 3.??Bacteremia??R78.81 Finally confirmed to be a contaminant??one of the cultures had to be sent to [facility]??due to lab capabilities??and??was confirmed to be a contaminant. ??He has no??true bacteremia he has negative repeat cultures in any event??no treatment??has been given here and no treatment needed no further work-up. Ordered: Electrocardiogram, 12/10/22 9:45:00 EDT, Angina-Chronic, Stop date 12/10/22 9:45:00 EDT, Altered mental status Suicidal ideation Diabetes Bacteremia ?? 4.??Chest pain??R07.9 atypical in nature, EKG is normal??90s point more towards the abdomen??and an area that he has no tenderness on palpation and no vomiting. ??At this point??no further work-up??unless something worsens. ?? Medically cleared for??discharge from hospital from a medical standpoint??now have psychiatric evaluation ?? Orders: Diet Order, 12/06/22 0:34:00 EDT, Consistent Carbohydrates, safety utensils Electronically Signed on 12/10/22 11:21 AM Douglas Turner MD History and physical note * [facility], DIESEL ENGINE TESTER: PERFORM, MODIFY, MODIFY, MODIFY, MODIFY, MODIFY Event Display: History and Physical Authored Date: [id number] TIANAARNALDO PRINCE :1970 Age:52 years Sex:Male Visit Date:12/05/2022 Chief Complaint pt to ED family reports slurred speech and pain in legs since . pt reports suicidal ideation History of Present Illness Patient is a 52-year-old male??with a PMHx of PTSD, diabetes type II, and adjustment disorder with anxiety presents to the emergency department with his sister due to worsening??abnormal behavior felt to be primarily psychiatric by sister.?? ED provider spoke with sister who reported to him that the patient's condition is significantly worsened after his brother was released from [facility].?? The patient has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
--- OUTSIDE RECORDS SUMMARY | 2023-03-18 09:00 | XMS_ITS | Continuity of Care Document ---
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 08/08/22 21:12?? 138?? 03/09/22?? 142?? Potassium Level?? 08/08/22 21:12?? 3.3 ??Low?? 03/09/22?? 3.5?? Chloride Level?? 08/08/22 21:12?? 103?? 03/09/22?? 104?? CO2?? 08/08/22 21:12?? 26?? 03/09/22?? 26?? Alk Phos?? 08/08/22 21:12?? 88?? 03/09/22?? 84?? AST?? 08/08/22 21:12?? 31?? 03/09/22?? 18?? ALT?? 08/08/22 21:12?? 34?? 03/09/22?? 28?? BUN?? 08/08/22 21:12?? 13?? 03/09/22?? 11?? Glucose Level?? 08/08/22 21:12?? 184 ??High?? 03/09/22?? 138 ??High?? Creatinine Level?? 08/08/22 21:12?? 1.05?? 03/09/22?? 1.02?? eGFR AA?? 08/08/22 21:12?? 87?? 03/09/22?? 90?? eGFR Non-AA?? 08/08/22 21:12?? 87?? 03/09/22?? 90?? Calcium Level?? 08/08/22 21:12?? 9.0?? 03/09/22?? 9.2?? Protein Total?? 08/08/22 21:12?? 7.8?? 03/09/22?? 7.3?? Albumin Level?? 08/08/22 21:12?? 4.0?? 03/09/22?? 3.9?? Bilirubin Total?? 08/08/22 21:12?? 0.5?? 03/09/22?? 0.3? Thyroid Studies?? LATEST RESULTS?? TSH?? 08/08/22 21:12?? 1.545? Serum Toxicology?? LATEST RESULTS?? Acetaminophen Level?? 08/08/22 21:12?? <10 ??Low?? Salicylate Level?? 08/08/22 21:12?? 2.8?? Ethanol Level?? 08/08/22 21:12?? <5? Urine Toxicology?? LATEST RESULTS?? HISTORICAL RESULTS?? U Amph Scrn?? 08/08/22 21:58?? Negative?? 03/09/22?? Negative?? U Janet Scrn?? 08/08/22 21:58?? Negative?? 03/09/22?? Negative?? U Benzodia Scrn?? 08/08/22 21:58?? Negative?? 03/09/22?? Negative?? U Buprenorph Scr?? 08/08/22 21:58?? Negative?? 03/09/22?? Negative?? U Cocaine Scrn?? 08/08/22 21:58?? Negative?? 03/09/22?? Negative?? U TCA Scr?? 08/08/22 21:58?? Negative?? 03/09/22?? Negative?? U THC Scr?? 08/08/22 21:58?? Negative?? 03/09/22?? Negative?? U mAMP Scr?? 08/08/22 21:58?? Negative?? 03/09/22?? Negative?? U Methadone Scr?? 08/08/22 21:58?? Negative?? 03/09/22?? Negative?? U Opiate Scrn?? 08/08/22 21:58?? Negative?? 03/09/22?? Negative?? U Oxy Scrn?? 08/08/22 21:58?? Negative?? 03/09/22?? Negative?? U PCP Scrn?? 08/08/22 21:58?? Negative?? 03/09/22?? Negative?? U PPX Scr?? 08/08/22 21:58?? Negative?? 03/09/22?? Negative? UA Macroscopic?? LATEST RESULTS?? HISTORICAL RESULTS?? UA Color?? 08/08/22 21:58?? Yellow?? 03/09/22?? Yellow?? UA Appear?? 08/08/22 21:58?? Cloudy Abnormal?? 03/09/22?? Clear?? UA Glucose?? 08/08/22 21:58?? Negative?? 03/09/22?? Negative?? UA Bili?? 08/08/22 21:58?? 1+ Abnormal?? 03/09/22?? Negative?? UA Ketones?? 08/08/22 21:58?? Trace Abnormal?? 03/09/22?? Negative?? UA Spec Grav?? 08/08/22 21:58?? >=1.030?? 03/09/22?? >=1.030?? UA Blood?? 08/08/22 21:58?? Negative?? 03/09/22?? Negative?? UA pH?? 08/08/22 21:58?? 5.0?? 03/09/22?? 6.0?? UA Protein?? 08/08/22 21:58?? Trace Abnormal?? 03/09/22?? Negative?? UA Urobilinogen?? 08/08/22 21:58?? Normal?? 03/09/22?? Normal?? UA Nitrite?? 08/08/22 21:58?? Negative?? 03/09/22?? Negative?? UA Leuk Est?? 08/08/22 21:58?? Negative?? 03/09/22?? Negative?? UA Culture Ind?.?? 08/08/22 21:58?? Not Indicated? UA Microscopic?? LATEST RESULTS?? UA WBC?? 08/08/22 21:58?? 0-3?? UA RBC?? 08/08/22 21:58?? 0-2?? UA Squam Epithelial?? 08/08/22 21:58?? Rare?? UA Mucous?? 08/08/22 21:58?? Many Abnormal?? UA Bacteria?? 08/08/22 21:58?? None Seen?? UA Amorph?? 08/08/22 21:58?? Few? Electronically Signed on 08/08/22 10:57 PM Bernard Trevino MD Emergency department Discharge instructions * Bernard Trevino MD: PERFORM Event Display: ED Discharge Information Authored Date: [id number] ARNALDO TAPIA :1970 Age:51 years Sex:Male Visit Date:08/08/2022 Primary Care Physician: Emily Mabry FINANCE ANALYST Discharge Instructions We would like to thank you for allowing us to assist you with your healthcare needs. The following includes patient education materials and information regarding your injury/illness. Diagnosis from Today's Visit Adjustment disorder with anxiety Discharge Vitals Temperature??(Temporal Artery) 97.3 ??F (36.3 ??C) Heart Rate??(Peripheral) 89 Respiratory Rate?? 15 Blood Pressure?? 132/96?? Height?? 67.72 in (172.000 cm) Weight??(Estimated) 293.60 lb (133.15 kg) Allergies No Known Medication Allergies metFORMIN??(Dizziness) What to Do Next Instructions from Your Care Team Follow-up with plan as outlined by mental health. You Need to Schedule the Following Appointments Follow Up with??psychiatry When:??Within 5 to 7 days You were treated today on an emergency basis; it may be powell to contact your primary care provider to notify them of your visit today. You may have been referred to your regular doctor or a specialist, please follow up as instructed. If your condition worsens or you can't get in to see the doctor, contact the Emergency Department. Medications What How Much When Why Instructions Next Dose Unchanged amoxicillin (amoxicillin 500 mg oral capsule) 1 Capsules Oral (given by mouth) 3 times a day Unchanged celecoxib (celecoxib 200 mg oral capsule) 1 Capsules Oral (given by mouth) 2 times a day Unchanged dapagliflozin (Farxiga 5 mg oral tablet) 1 tab Oral (given by mouth) Every day for 30 days ?? Unchanged empagliflozin (Jardiance 25 mg oral tablet) Oral (given by mouth) Unchanged insulin glargine (Lantus Solostar Pen 100 units/ mL subcutaneous solution) 20 Units Subcutaneous (under the skin) Every evening Unchanged lisinopril (lisinopril 10 mg oral tablet) 1 tab Oral (given by mouth) Every day for 90 days ?? Unchanged metFORMIN (MetFORMIN (Eqv-Glucophage XR) 500 mg oral tablet, extended release) 2 tab Oral (given by mouth) 2 times a day (with meals) Unchanged naproxen (naproxen 500 mg oral delayed release tablet) 1 tab Oral (given by mouth) 2 times a day Lumbago co-occurrent with right-side sciatica Take as needed for back pain. ??Do not take with ibuprofen or other NSAID. ?? Unchanged omeprazole (omeprazole 10 mg oral delayed release capsule) 1 Capsules Oral (given by mouth) Every morning for 90 days ?? Unchanged Other Prescription (ASPIRIN LOW EC 81MG TAB) 1 tab Oral (given by mouth) Every day for 90 days ?? Unchanged Other Prescription (BD PEN NEEDL MIS 32GX5/ 32) Unchanged Other Prescription (BD PEN NEEDLE/ ERENDIRA 98DP0SO MIS) See instructions Use 1 new pen needle for each once daily injection ?? Unchanged pravastatin (pravastatin 20 mg oral tablet) 1 tab Oral (given by mouth) Every day for 30 days ?? Unchanged psyllium (Metamucil Dang Burst Smooth Texture 3.4 g/ 5.8 g oral powder for reconstitution) 5 Milliliters Oral (given by mouth) 3 times a day as needed for as needed for constipation Constipation Unchanged semaglutide (Ozempic 8 mg/ 3 mL (2 mg dose) subcutaneous solution) 2 Milligrams Subcutaneous (under the skin) Every week in the abdomen, thigh, or upper arm ?? Unchanged semaglutide (Ozempic 8 mg/ 3 mL (2 mg dose) subcutaneous solution) 2 Milligrams Subcutaneous (under the skin) Every week in the abdomen, thigh, or upper arm ?? Unchanged semaglutide (semaglutide 2 mg/ 1.5 mL (0.25 mg or 0.5 mg dose) subcutaneous solution) Seeinstructions 2mg/ dose (8mg/ 3ml) Inject 2mg SQ once a week ?? Unchanged triamcinolone topical (triamcinolone 0.1% topical cream) 1 Application Topical (on the skin) 2 times a day Eczema of hand Education Materials Managing Anxiety, Adult After being diagnosed with an anxiety disorder, you may be relieved to know why you have felt or behaved a certain way. You may also feel overwhelmed about the treatment ahead and what it will mean for your life. With care and support, you can manage this condition and recover from it. How to manage lifestyle changes Managing stress and anxiety Stress is your body's reaction to life changes and events, both good and bad. Most stress will lastjust a few hours, but stress can be ongoing and can lead to more than just stress. Although stress can play a major role in anxiety, it is not the same as anxiety. Stress is usually caused by something external, such as a deadline, test, or competition. Stress normally passes after the triggering ev ent has ended. Anxiety is caused by something internal, such as imagining a terrible outcome or worrying that something will go wrong that will devastate you. Anxiety often does not go away even after the triggering event is over, and it can become long-term (chronic) worry. It is important to understand the differences between stress and anxiety and to manage your stress effectively so that it does not lead skyler anxious response. Talk with your health care provider or a counselor to learn more about reducing anxiety and stress.He or she may suggest tension reduction techniques, such as: ? Music therapy. This can include creating or listening to music that you enjoy and that inspires you. ? Mindfulness-based meditation. This involves being aware of your normal breaths while not trying to control your breathing. It can be done while sitting or walking. ? Centering prayer. This involves focusing on a word, phrase, or sacred image that means something toyou and brings you peace. ? Deep breathing. To do this, expand your stomach and inhale slowly through your nose. Hold your breath for 3???5 seconds. Then exhale slowly, letting your stomach muscles relax. ? Self-talk. This involves identifying thought patterns that lead to anxiety reactions and changing those patterns. ? Muscle relaxation. This involves tensing muscles and then relaxing them. Choose a tension reduction technique that suits your lifestyle and personality. These techniques take time and practice. Set aside 5???15 minutes a day to do them. Therapists can offer counseling andtraining in these techniques. The training to help with anxiety may be covered by some insurance plans. Other things you can do to manage stress and anxiety include: ? Keeping a stress/anxiety diary. This can help you learn what triggers your reaction and then learn ways to manage your response. ? Thinking about how you react to certain situations. You may not be able to control everything, but you can control your response. ? Making time for activities that help you relax and not feeling guilty about spending your time in this way. ? Visual imagery and yoga can help you stay calm and relax. Medicines Medicines can help ease symptoms. Medicines for anxiety include: ? Anti-anxiety drugs. ? Antidepressants. Medicines are often used as a primary treatment for anxiety disorder. Medicines will be prescribed by a health care provider. When used together, medicines, psychotherapy, and tension reduction techniques may be the most effective treatment. Relationships Relationships can play a big part in helping you recover. Try to spend more time connecting with trusted friends and family members. Consider going to couples counseling, taking family education classes, or going to family therapy. Therapy can help you and others better understand your condition. How to recognize changes in your anxiety Everyone responds differently to treatment for anxiety. Recovery from anxiety happens when symptomsdecrease and stop interfering with your daily activities at home or work. This may mean that you will start to: ? Have better concentration and focus. Worry will interfere less in your daily thinking. ? Sleep better. ? Be less irritable. ? Have more energy. ? Have improved memory. It is important to recognize when your condition is getting worse. Contact your health care provider if your symptoms interfere with home or work and you feel like your condition is not improving. Follow these instructions at home: Activity ? Exercise. Most adults should do the following: ? Exercise for at least 150 minutes each week. The exercise should increase your heart rate and make you sweat (moderate-intensity exercise). ? Strengthening exercises at least twice a week. ? Get the right amount and quality of sleep. Most adults need 7???9 hours of sleep each night. Lifestyle ? Eat a healthy diet that includes plenty of vegetables, fruits, whole grains, low-fat dairy products, and lean protein. Do not eat a lot of foods that are high in solid fats, added sugars, or salt. ? Make choices that simplify your life. ? Do not use any products that contain nicotine or tobacco, such as cigarettes, e- cigarettes, and chewing tobacco. If you need help quitting, ask your health care provider. ? Avoid caffeine, alcohol, and certain eipo-mkz-vyfllsj cold medicines. These may make you feel worse. Ask your pharmacist which medicines to avoid. General instructions ? Take jvwd-fqs-qkbzymd and prescription medicines only as told by your health care provider. ? Keep all follow-up visits as told by your health care provider. This is important. Where to find support You can get help and support from these sources: ? Self-help groups. ? Online and community organizations. ? A trusted spiritual leader. ? Couples counseling. ? Family education classes. ? Family therapy. Where to find more information You may find that joining a support group helps you deal with your anxiety. The following sources can help you locate counselors or support groups near you: ? Mental Health [place]: www.mentalhealthamerica.net ? Anxiety and Depression Association of [place] (ADAA): www.adaa.org ? National [place] [employer] [place] [employer]ness (SHANAE): www.shanae.org Contact a health care provider if you: ? Have a hard time staying focused or finishing daily tasks. ? Spend many hours a day feeling worried about everyday life. ? Become exhausted by worry. ? Start to have headaches, feel tense, or have nausea. ? Urinate more than normal. ? Have diarrhea. Get help right away if you have: ? A racing heart and shortness of breath. ? Thoughts of hurting yourself or others. If you ever [...] open 24 hours a day. Summary ? Taking steps to learn and use tension reduction techniques can help calm you and help prevent triggering an anxiety reaction. ? When used together, medicines, psychotherapy, and tension reduction techniques may be the most effective treatment. ? Family, friends, and partners can play a big part in helping you recover from an anxiety disorder. This information is not intended to replace advice given to you by your health care provider. Make sure you discuss any questions you have with your health care provider. Document Revised: 01/07/2020 Document Reviewed: 01/07/2020 Elsevier Patient Education ?? 2021 [employer] Tests Performed Lab Test Name Test Result Date/Time WBC 10.4 x10^3/mcL 08/08/2022 21:12 EST RBC 5.1 x10^6/mcL 08/08/2022 21:12 EST Hgb 14.9 g/dL 08/08/2022 21:12 EST Hct 44.8 % 08/08/2022 21:12 EST MCV 88.5 08/08/2022 21:12 EST MCH 29.4 pg 08/08/2022 21:12 EST MCHC 33.3 g/dL 08/08/2022 21:12 EST RDW-CV 12.9 % 08/08/2022 21:12 EST Platelets 223 x10^3/mcL 08/08/2022 21:12 EST Neutro Auto 47.4 % 08/08/2022 21:12 EST Lymph Auto 40.8 % 08/08/2022 21:12 EST [place] Auto 9.6 % 08/08/2022 21:12 EST Eos, Auto 0.9 % 08/08/2022 21:12 EST Basophil Auto 0.7 % 08/08/2022 21:12 EST Imm Gran Auto 0.6 % 08/08/2022 21:12 EST Neutro Absolute 4.9 x10^3/mcL 08/08/2022 21:12 EST Sodium Level 138 mmol/L 08/08/2022 21:12 EST Potassium Level 3.3 mmol/L 08/08/2022 21:12 EST Chloride Level 103 mmol/L 08/08/2022 21:12 EST CO2 26 mmol/L 08/08/2022 21:12 EST Alk Phos 88 unit/L 08/08/2022 21:12 EST AST 31 unit/L 08/08/2022 21:12 EST ALT 34 unit/L 08/08/2022 21:12 EST BUN 13 mg/dL 08/08/2022 21:12 EST Glucose Level 184 mg/dL 08/08/2022 21:12 EST Creatinine Level 1.05 mg/dL 08/08/2022 21:12 EST eGFR AA 87 08/08/2022 21:12 EST eGFR Non-AA 87 08/08/2022 21:12 EST Calcium Level 9.0 mg/dL 08/08/2022 21:12 EST Protein Total 7.8 g/dL 08/08/2022 21:12 EST Albumin Level 4.0 g/dL 08/08/2022 21:12 EST Bilirubin Total 0.5 mg/dL 08/08/2022 21:12 EST TSH 1.545 mcIntlUnit/mL 08/08/2022 21:12 EST Acetaminophen Level <10 ug/mL 08/08/2022 21:12 EST Salicylate Level 2.8 mg/dL 08/08/2022 21:12 EST Ethanol Level <5 mg/dL 08/08/2022 21:12 EST U Amph Scrn NEGATIVE 08/08/2022 21:58 EST U Janet Scrn NEGATIVE 08/08/2022 21:58 EST U Benzodia Scrn NEGATIVE 08/08/2022 21:58 EST U Buprenorph Scr NEGATIVE 08/08/2022 21:58 EST U Cocaine Scrn NEGATIVE 08/08/2022 21:58 EST U TCA Scr NEGATIVE 08/08/2022 21:58 EST U THC Scr NEGATIVE 08/08/2022 21:58 EST U mAMP Scr NEGATIVE 08/08/2022 21:58 EST U Methadone Scr NEGATIVE 08/08/2022 21:58 EST U Opiate Scrn NEGATIVE 08/08/2022 21:58 EST U Oxy Scrn NEGATIVE 08/08/2022 21:58 EST U PCP Scrn NEGATIVE 08/08/2022 21:58 EST U PPX Scr NEGATIVE 08/08/2022 21:58 EST UA Color YELLOW. 08/08/2022 21:58 EST UA Appear CLOUDY. 08/08/2022 21:58 EST UA Glucose NEGATIVE 08/08/2022 21:58 EST UA Bili 1+ 08/08/2022 21:58 EST UA Ketones TRACE. 08/08/2022 21:58 EST UA Spec Grav >=1.030 08/08/2022 21:58 EST UA Blood NEGATIVE 08/08/2022 21:58 EST UA pH 5.0 08/08/2022 21:58 EST UA Protein TRACE. 08/08/2022 21:58 EST UA Urobilinogen 0.2 Uro 08/08/2022 21:58 EST UA Nitrite NEGATIVE 08/08/2022 21:58 EST UA Leuk Est NEGATIVE 08/08/2022 21:58 EST UA Culture Ind?. Not Indicated 08/08/2022 21:58 EST UA WBC 0-3 08/08/2022 21:58 EST UA RBC 0-2 08/08/2022 21:58 EST UA Squam Epithelial Rare 08/08/2022 21:58 EST UA Mucous Many 08/08/2022 21:58 EST UA Bacteria None Seen 08/08/2022 21:58 EST UA Amorph Few 08/08/2022 21:58 EST Patient/Power System Dispatcher Signature Patient Name:ARNALDO TAPIA I have received this information and my questions have been answered. Patient/Power System Dispatcher Name: Patient/Power System Dispatcher Signature: Relationship to Patient: Witness Name/Signature: Date: Electronically Signed on: 08/08/2022 22:57 ESTSigned by:MRB Emergency department Note * Amanda Altamirano: PERFORM Event Display: ED Notes Authored Date: [id number] * Amanda Altamirano: PERFORM Event Display: ED Notes Authored Date: [id number] * Amanda Altamirano: PERFORM Event Display: ED Notes Authored Date: [id number] Patient Care team information Personnel Name: PhiljoseEmily NP Address: Address: [place] [id number]
--- NOTE | 2023-03-18 10:03 | NUR.NOTE ---
Nursing Note: this nurse attempted to assess patient. Patient's answers to all questions asked I don't know my temperature from front to back so I don't know. will attempt again when sister comes back to room
--- NOTE | 2023-03-18 10:30 | DI.CT_ITS ---
Exam(s) CT HEAD WO EXAM: CT HEAD WO CLINICAL HISTORY: AMS. TECHNIQUE: Imaging Protocol: Axial computed tomography images with coronal and sagittal reformatted images were created and reviewed COMPARISON: No exams were available for comparison FINDINGS: There are no skull fractures. There is no fluid in the visualized paranasal sinuses. There is no evidence of intracranial hemorrhage, mass effect, or shift of midline structures. There are no extra-axial fluid collections. The ventricles are not enlarged or shifted and there is no blo od within the ventricular system nor within the basal cisterns. IMPRESSION: No acute intracranial findings on this noninfused CT scan of the brain. RADIATION DOSE DELIVERED: 932.41mGy.cm Total DLP DATA REPOSITORY: All CT scans at this facility are submitted to the National Radiology Data Registry (NRDR) Dose Index Registry (DIR) with the [employer] (ACR). RADIATION OPTIMIZATION: All CT scans at this facility use at least one of these dose optimization te chniques: automated exposure control; mA and/or kV adjustment per patient size (includes targeted exa ms where dose is matched to clinical indication); or iterative reconstruction.
--- NOTE | 2023-03-18 11:05 | DI.CT_ITS ---
Exam(s) CT LUMBAR SPINE SI JOINTS WO EXAM: CT LUMBAR SPINE SI JOINTS WO CLINICAL HISTORY: back pain. TECHNIQUE: Imaging Protocol: Axial computed tomography images with coronal and sagittal reformatted images were created and reviewed COMPARISON: No exams were available for comparison FINDINGS: Bones: There are posterior fusion rods evident at L5-S1 level supported by bilateral intrapedicular s crews at these 2 levels and the relationship of the screws relative to the superior endplates is sati sfactory. There is also an intervertebral disc space device at this level. There is fusion at the L 5-S1 disc space. There is no evidence of osteomyelitis. No evidence of fracture nor significant listhesis. There are pars defects bilaterally at L5.. There are no lytic osseous lesions evident.Sacroiliac joints appear unremarkable. No fractures nor osseou s lesions evident in the sacrum. Other disc spaces above the fusion exhibit normal height. There is no obvious disc herniation nor ce ntral spinal canal stenosis. There are no paraspinal fluid collections. PARASPINAL SOFT TISSUES: Visualized paraspinal tissues appear unremarkable. IMPRESSION: 1. Intact fusion rods and intrapedicular screws at L5-S1 level. Bilateral pars defects noted at L5 l evel. There is no significant listhesis. 2. No evidence of acute fracture nor facet malalignment. 3. No prominent disc herniations evident. If clinically indicated follow-up outpatient MRI can be performed. RADIATION DOSE DELIVERED: 1,440.87mGy.cm Total DLP DATA REPOSITORY: All CT scans at this facility are submitted to the National Radiology Data Registry (NRDR) Dose Index Registry (DIR) with the [employer] (ACR). RADIATION OPTIMIZATION: All CT scans at this facility use at least one of these dose optimization te chniques: automated exposure control; mA and/or kV adjustment per patient size (includes targeted exa ms where dose is matched to clinical indication); or iterative reconstruction.
[2023-03-18 11:06] LABS: Abs Immature Grans 0.06 10^3/uL (0.0-0.06); Absolute Basophil Count 0.05 10^3/uL (0.0-0.2); Absolute Eosinophil Count 0.07 10^3/uL (0.0-0.7); Absolute Lymphocyte Count 2.55 10^3/uL (1.2-3.4); Absolute Monocyte Count 0.69 10^3/uL (0.1-0.8); Basophils % 0.6; Eosinophils % 0.8; HCT 45.9 % (40.0-50.0); HGB 15.4 g/dL (13.5-17.5); Immature Grans % 0.7; Lymphocytes % 30.6; MCH 28.9 pg (27.0-33.0); MCHC 33.6 % (32.0-36.0); MCV 86 fL (80-95); MPV 10.6 fL (8.0-11.0); Monocytes % 8.3; Platelet Count 221 10^3/uL (130-400); RBC 5.33 10^6/uL (4.36-5.78); RDW 12.9 % (11.8-14.1); RDW-SD 40.2 fL; WBC 8.32 10^3/uL (4.4-10.8)
[2023-03-18 11:15] LABS: BE (Venous) -1 mmol/L (-2-3); HCO3 (Venous) 24 mmol/L (23-28); O2 Sat (Venous) 93 %; TCO2 (Venous) 25 mmol/L (24-29); pCO2 (Venous) 37 mmHg (41-51); pH (Venous) 7.41 (7.31-7.41); pO2 (Venous) 65 mmHg
--- NOTE | 2023-03-18 11:20 | DI.VRAD_ITS ---
PROCEDURE INFORMATION: Exam: CT Head Without Contrast Exam date and time: 03/18/2023 11:01 AM Age: 52 years old Clinical indication: Other: AMS TECHNIQUE: Imaging protocol: Computed tomography of the head without contrast. Radiation optimization: All CT scans at this facility use at least one of these dose optimization techniques: automated exposure control; mA and/or kV adjustment per patient size (includes targeted exams where dose is matched to clinical indication); or iterative reconstruction. COMPARISON: No relevant prior studies available. FINDINGS: Brain: No evidence of acute infarct. No intraparenchymal hemorrhage. No midline shift or mass effect. No extra-axial fluid collections or hemorrhage. Cerebral ventricles: No ventriculomegaly. Paranasal sinuses: Visualized sinuses are unremarkable. No fluid levels. Mastoid air cells: Visualized mastoid air cells are well aerated. Bones/joints: Unremarkable. No acute fracture. Soft tissues: Unremarkable. IMPRESSION: No acute intracranial abnormality. Dictated and Authenticated by: Jack Bang MD. Ordering:JG Gutierrez MD
[2023-03-18 11:27] LABS: ALT 47 U/L (16-63); AST 34 U/L (15-37); Albumin 3.7 g/dL (3.4-5.0); Alkaline Phosphatase 93 U/L (46-116); Anion Gap 11.6 mmol/L (3-11); BUN 9 mg/dL (7-18); Bilirubin, Total 0.4 mg/dL (0.2-1.0); CO2 24.4 mmol/L (21.0-32.0); Calcium 8.7 mg/dL (8.5-10.1); Chloride 103 mmol/L (98-107); Estimated GFR 91.69 (mL/min/1.73m2); Glucose 285 mg/dL (74-106); Potassium 3.6 mmol/L (3.5-5.1); Sodium 139 mmol/L (136-145); Total Protein 7.4 g/dL (6.4-8.2)
--- NOTE | 2023-03-18 11:34 | DI.VRAD_ITS ---
PROCEDURE INFORMATION: Exam: CT Lumbar Spine Without Contrast Exam date and time: 03/18/2023 11:10 AM Age: 52 years old Clinical indication: Other: Back pain; Prior surgery; Surgery date: 6+ months; Surgery type: Unknown-pt unable to give history TECHNIQUE: Imaging protocol: Computed tomography of the lumbar spine without contrast. COMPARISON: No relevant prior studies available. FINDINGS: Bones/joints: There is no evidence of acute fracture.There is no evidence of malalignment or dislocation. Parallel spinous rods and pedicular screws at L5/S1. Fusion at the L5-S1 disc space. Broad-based disc bulge at L4/L5 and L3/L4. May represent degenerative disc disease. Soft tissues: Unremarkable. IMPRESSION: 1. There is no evidence of acute fracture.There is no evidence of malalignment or dislocation. 2. Parallel spinous rods and pedicular screws at L5/S1. . 3. Fusion at the L5-S1 disc space. 4. Broad-based disc bulge at L4/L5 and L3/L4. May represent degenerative disc disease. Dictated and Authenticated by: Silva Marti MD. Ordering:JG Gutierrez MD
[2023-03-18 11:37] LABS: ETHANOL BLOOD < 3.0 mg/dL (<10)
[2023-03-18 11:46] LABS: Salicylate < 2.8 mg/dL (<2.8)
[2023-03-18 11:48] LABS: Acetaminophen < 2 ug/mL (10-30)
--- NOTE | 2023-03-18 13:07 | W.ED.GENAD ---
Discharge Plan Discharge Details Chief Complaint: PsychEval Clinical Impression: Acute psychosis Primary Care Provider: Cristina Paniagua ED Provider: Kamari Abdi Home Meds and New Rx's Prescriptions: No Action Kava Kava 500 mg capsule 500 mg PO DAILY meloxicam 7.5 mg tablet 7.5 - 15 mg PO DAILY PRN (Reason: pain) Qty: 30 0RF aspirin 81 mg tablet,delayed release (DR/EC) 81 mg PO DAILY omeprazole 10 mg capsule,delayed release(DR/EC) 10 mg PO DAILY Ozempic 1 mg/dose (4 mg/3 mL) pen injector 1 mg subcut QWEEK lisinopril 10 mg tablet 10 mg PO DAILY fluticasone propionate [Allergy Relief (fluticasone)] 50 mcg/actuation spray,suspension 1 spray intranasal BID Rx Instructions: administer into each nostril acetaminophen 500 mg tablet 500 mg PO BID PRN (Reason: pain) Qty: 180 3RF Medical Decision Making <Matt Graham NP - Last Filed: 03/19/23 11:28> Patient presenting to the emergency department with sister for multiple random complaints. Patient has had back pain for many years and had surgery 4 years ago and sister states since then he occasionally has episodes where he complains of multiple issues but then has psychiatric problems. Patient complaining of back problems but then rambles about his bowel movements urination knee pain and his living situation where he has to lay on his side. Patient not completely having coherent thought. He is alert and awake but difficult to get orientation due to his rambling. No obvious neurological findings on physical exam, patient does have mid lumbar back tenderness but is moving all extremities, no weakness is noted, no saddle anesthesia, no numbness or tingling, patient is able to control bowel or bladder. It is unclear of patient's altered mental status we will check patient's labs including standard psychiatric labs and UDS and will perform CT imaging of patient's back given him complaining of back pain. I do not feel that patient's symptoms are consistent with cauda equina, severe spinal stenosis, epidural abscess or other emergent back pain findings. Sister does state that patient has had multiple episodes similar to this and multiple hospitals have evaluated him with no obvious cause. Reviewed patient's labs and CBC is unremarkable, VBG shows slightly low CO2 at 37 otherwise all other findings within normal range, slight anion gap of 11.6, glucose of 285, urine is very concentrated with protein ketones and trace blood noted otherwise again nondiagnostic, UDS is negative, along with all other potential drugs or overdose labs. Reviewed CT imaging that showed no emergent findings on head or lumbar back. We will plan on contacting psychiatric services due to patient having some delusional rambling thoughts and history of previous episodes which sister again describes as psychiatric breaks Patient signed out to Gisela Orantes NP pending psychiatric evaluation. <Izabel Orantes NP - Last Filed: 03/18/23 23:28> Patient presenting to the emergency department with sister for multiple random complaints. Patient has had back pain for many years and had surgery 4 years ago and sister states since then he occasionally has episodes where he complains of multiple issues but then has psychiatric problems. Patient complaining of back problems but then rambles about his bowel movements urination knee pain and his living situation where he has to lay on his side. Patient not completely having coherent thought. He is alert and awake but difficult to get orientation due to his rambling. No obvious neurological findings on physical exam, patient does have mid lumbar back tenderness but is moving all extremities, no weakness is noted, no saddle anesthesia, no numbness or tingling, patient is able to control bowel or bladder. It is unclear of patient's altered mental status we will check patient's labs including standard psychiatric labs and UDS and will perform CT imaging of patient's back given him complaining of back pain. I do not feel that patient's symptoms are consistent with cauda equina, severe spinal stenosis, epidural abscess or other emergent back pain findings. Sister does state that patient has had multiple episodes similar to this and multiple hospitals have evaluated him with no obvious cause. Reviewed patient's labs and CBC is unremarkable, VBG shows slightly low CO2 at 37 otherwise all other findings within normal range, slight anion gap of 11.6, glucose of 285, urine is very concentrated with protein ketones and trace blood noted otherwise again nondiagnostic, UDS is negative, along with all other potential drugs or overdose labs. Reviewed CT imaging that showed no emergent findings on head or lumbar back. We will plan on contacting psychiatric services due to patient having some delusional rambling thoughts and history of previous episodes which sister again describes as psychiatric breaks Patient signed out to Gisela Orantes NP pending psychiatric evaluation. 1630: Care assumed from provider (Shoaib Graham NP) Please see their initial HPI, PE, and documentation. Discussed patient details and case and pending workup and disposition. 1644: Spoke with [facility] with any [facility] who is unable to perform a mental health eval at this time due to patient's cyclical thinking, rambling. Patient is not complaining of SI or HI has received a liter of fluid Tylenol and Motrin. [facility]. I did order Zyprexa 5 mg to see if this clears his mental state. Only finding on his medical work-up as noted above. Slightly elevated glucose of 285. And concentrated urine. Will reevaluate approximately an hour after the olanzapine. Will consider admission and will also contact the [facility], for altered mental status. patient demonstrating fixated and cyclical thinking. 1815: Patient has received 5 mg of olanzapine p.o., upon reevaluation he is sitting up, attempting to eat, Will speak with [facility]. 1903: Spoke with [facility] medical team Dr. Deedee Alvarez and resident team at the [facility] they do not believe at this time that is a medical issue. They are requesting repeat mental health eval and dispo after that has occurred. [facility] with [facility] repaged. 1945: [facility] Eng attempting to perform zoom eval at this time. 2038: Spoke again with [facility] after he spoke with patients sister, He recommends admission and will try to re-evaluate in am with family. Will page hospitalist to admit for altered mental status. patient is sleeping at this time, has remained calm, and cooperative. He has been ambulatory in department. 2110: Spoke with Dr. Starr who does not see amedical reason for admission at this time. Will plan for MH re-evaluation in am. Regular med orders placed and will continue to monitor BGL's. 2327: Care to be handed off to ER Dr. Abdi pending mental health reeval in the a.m. Patient is remained calm and cooperative at this time. HPI <Matt Graham NP - Last Filed: 03/19/23 11:28> General Mode of arrival: wheelchair. Date/Time Provider Initiated Documentation: 03/18/23 09:39. Limitations to Documentation: no limitations. Information obtained by: patient, family and RN notes reviewed. History of Present Illness 52 year old M presents to the emergency department with the chief complaint of Altered mental status, back pain, described as similar to prior episodes, Patient started experiencing this unknown and it has been intermittent. No relieving factors improve symptom(s), No exacerbating factors reported . Patient did receive the following treatments prior to arrival, none Related Data Home Medications Medication Instructions Recorded Confirmed aspirin 81 mg tablet,delayed 81 mg PO DAILY 10/10/22 03/20/23 release omeprazole 10 mg capsule,delayed 10 mg PO DAILY 10/10/22 03/20/23 release semaglutide 1 mg/dose (4 mg/3 mL) 1 mg subcut QWEEK 10/10/22 03/20/23 subcutaneous pen injector (Ozempic) fluticasone propionate 50 1 spray intranasal BID 12/13/22 03/20/23 mcg/actuation nasal spray,suspension (Allergy Relief (fluticasone)) lisinopril 10 mg tablet 10 mg PO DAILY 12/13/22 03/20/23 kava (piper methysticum) 500 mg 500 mg PO DAILY mood 12/21/22 03/20/23 capsule (Kava Kava) meloxicam 7.5 mg tablet 7.5 - 15 mg PO DAILY PRN pain #30 12/21/22 03/20/23 tabs acetaminophen 500 mg tablet 500 mg PO BID PRN pain #180 02/16/23 03/20/23 tab-caps Previous Rx's Medication Instructions Recorded meloxicam 7.5 mg tablet 7.5 - 15 mg PO DAILY PRN pain #30 12/21/22 tabs acetaminophen 500 mg tablet 500 mg PO BID PRN pain #180 02/16/23 tab-caps Allergies Allergy/AdvReac Type Severity Reaction Status Date / Time metformin AdvReac Dizziness Verified 03/18/23 09:07 General Stated Complaint: PsychEval KEYONA: 2 Review of Systems <Matt Graham NP - Last Filed: 03/19/23 11:28> Constitutional Constitutional: Reports fatigue, Denies fever(s), Denies headache(s) and Reports malaise ENT Ears, Nose, Mouth, and Throat: Denies headache(s) Cardiovascular Cardiovascular: Denies chest pain and Denies dyspnea Respiratory Respiratory: Denies cough and Denies dyspnea Gastrointestinal Gastrointestinal: Denies abdominal pain, Reports diarrhea, Denies nausea and Denies vomiting Genitourinary Genitourinary: Denies difficulty urinating and Denies urinary incontinence Musculoskeletal Musculoskeletal: Reports back pain Integumentary/Breasts Skin/Breast: Denies erythema and Denies rash Neurologic Neurologic: Denies headache(s) Psychiatric Psychiatric: Reports anxiety, Reports depression, Denies visual hallucinations, Denies hallucinations, Denies homicidal ideation and Denies suicidal ideation Endocrine Endocrine: Reports fatigue PFSH <Matt Graham NP - Last Filed: 03/19/23 11:28> All Active Problems (Updated 03/19/23 @ 17:44 by Ronny Wang MD) Acute psychosis (Acute) Restless leg syndrome (Acute) PTSD (post-traumatic stress disorder) (Acute) Type 2 diabetes mellitus (Acute 05/17/19) Spondylolysis (Acute) Spondylolisthesis at L5-S1 level (Acute) Morbid obesity (Acute) Lumbago with sciatica (Acute) Hyperlipidemia (Acute) 11/2022 labs: 10-year ASCVD risk = ~12.1% (baseline LDL 107) --> letter to pt suggesting a statin GERD (gastroesophageal reflux disease) (Chronic) Hypertension (Chronic) Medical History Depressive disorder Insomnia TAHMINA (obstructive sleep apnea) 12/2022: pt reports this resolved after he got his tonsils out & denies any problems with snoring, witnessed apneic events, or unrestful sleep Psychotic disorder Surgical History History of spinal surgery (01/25/22) [facility] History of tonsillectomy (03/10/20) UPPP procedure & uvulectomy History of umbilical hernia repair (07/26/12) History of vasectomy (08/21/08) Social History Smoking/Tobacco Use Status: Never Smoking risk assessment performed?: Yes Alcohol Intake: current Alcohol Intake frequency: 0-2 drinks per day Drug use: Never Substance use type: does not use Adopted: No Caregiver/Support person: No Foster care: No Household members: family Housing: house Number of Children: 2 Communication Needs: Corrective Lenses Education Level: college Details: some Do you need help understanding health information?: Never 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 Pets and animals: No Sexually active: Yes Do you think of yourself as: straight/heterosexual Current gender identity: male What is your relationship status?: How often do you talk on the phone with friends or family?: three or more times per week How often do you get together with friends or relatives?: three or more times per week Do you belong to any clubs or organized social groups?: no Panel score (0-1 are the most socially isolated patients): 1 What type of physical activity do you participate in: walking Duration: > 90 minutes/day Frequency: daily Brenda/Scientology: Episcopalian Seatbelt use: always Helmet use: No Drive intox or ride w/intox mobile lounge driver: No Additional Social history: unable to obtain D/T current condition Exam <Matt Graham NP - Last Filed: 03/19/23 11:28> Const General: anxious and disheveled Nutritional Appearance: obese Orientation: alert, awake and confused Limitations: altered mental status [facility] Head: normal to inspection, normocephalic and atraumatic Ears: hearing grossly normal bilaterally General nose exam: external nose normal Face and sinus: normal facial exam Eyes General: appearance normal, both eyes and all related structures Visual Jim: normal visual jim by confrontation Alignment and Position: alignment normal Periorbital: periorbital findings normal Eyelids: eyelids normal Conjunctivae: conjunctivae normal Pupils: PERRL EOM: EOM intact bilaterally Neck Neck: normal visual inspection and full ROM Resp Effort & Inspection: normal respiratory effort and able to speak in complete sentences Auscultation: clear to auscultation bilaterally Cardio Rate: regular rate Rhythm: regular rhythm Heart Sounds: S1 normal and S2 normal Back/Spine/Pelvis Thoracic/Lumbar Spine: paraspinal tenderness, No thoracic spinal tenderness and lumbar spinal tenderness Pelvis: no pain with anterior-posterior compression, no pain with lateral compression and no buttock tenderness Neuro General: patient alert, patient awake, moves all extremities and CN's II-XI intact bilaterally Motor: no pronator drift, no movement abnormalities noted and no fasciculations Sensory Exam: no sensory deficits noted Course <Matt Graham NP - Last Filed: 03/19/23 11:28> Vital Signs Vital signs: Vital Signs Temperature 36.3 C L 03/18/23 08:58 Pulse 103 H 03/18/23 08:58 Respiratory Rate 20 03/18/23 08:58 Blood Pressure 113/90 03/18/23 08:58 Pulse Oximetry 96 03/18/23 08:58 Temperature 36.3 C L 03/18/23 08:58 Temperature Source Skin 03/18/23 08:58 Pulse 103 H 03/18/23 08:58 Respiratory Rate 20 03/18/23 08:58 Blood Pressure 113/90 03/18/23 08:58 Blood Pressure Position Sitting 03/18/23 08:58 Pulse Oximetry 96 03/18/23 08:58 Oxygen Delivery Method Room Air 03/18/23 08:58 Oxygen Flow Rate 0 03/18/23 08:58 Lab/Test Results Lab/Test Results: Laboratory Tests Range/Units 03/18/23 03/18/23 03/18/23 10:56 10:56 10:56 WBC (4.4-10.8) 10^3/uL RBC (4.36-5.78) 10^6/uL Hgb (13.5-17.5) g/dL Hct (40.0-50.0) % MCV (80-95) fL MCH (27.0-33.0) pg MCHC (32.0-36.0) % RDW (11.8-14.1) % Plt Count (130-400) 10^3/uL MPV (8.0-11.0) fL Immature Gran % Neutrophils % Lymphocytes % Monocytes % Eosinophils % Basophils % Nucleated RBC % (0.0-0.3) % Absolute Neutrophils (1.2-6.7) 10^3/uL Absolute Lymphocytes (1.2-3.4) 10^3/uL Absolute Monocytes (0.1-0.8) 10^3/uL Absolute Eosinophils (0.0-0.7) 10^3/uL Absolute Basophils (0.0-0.2) 10^3/uL VBG pH (7.31-7.41) 7.41 VBG pCO2 (41-51) mmHg 37 L VBG pO2 mmHg 65 VBG HCO3 (23-28) mmol/L 24 VBG Total CO2 (24-29) mmol/L 25 VBG O2 Saturation % 93 VBG Base Excess (-2-3) mmol/L -1 Sodium (136-145) mmol/L Potassium (3.5-5.1) mmol/L Chloride (98-107) mmol/L Carbon Dioxide (21.0-32.0) mmol/L Anion Gap (3-11) mmol/L BUN (7-18) mg/dL Creatinine (0.70-1.30) mg/dL Est GFR (CKD-EPI 2020) (mL/min/1.73m2) Glucose (74-106) mg/dL Calcium (8.5-10.1) mg/dL Magnesium (1.8-2.4) mg/dL Total Bilirubin (0.2-1.0) mg/dL AST (15-37) U/L ALT (16-63) U/L Alkaline Phosphatase (46-116) U/L Total Protein (6.4-8.2) g/dL Albumin (3.4-5.0) g/dL TSH Cancelled Salicylates Cancelled Acetaminophen Cancelled Ethyl Alcohol Cancelled Range/Units 03/18/23 03/18/23 03/18/23 10:56 10:56 10:56 WBC (4.4-10.8) 10^3/uL 8.32 RBC (4.36-5.78) 10^6/uL 5.33 Hgb (13.5-17.5) g/dL 15.4 Hct (40.0-50.0) % 45.9 MCV (80-95) fL 86 MCH (27.0-33.0) pg 28.9 MCHC (32.0-36.0) % 33.6 RDW (11.8-14.1) % 12.9 Plt Count (130-400) 10^3/uL 221 MPV (8.0-11.0) fL 10.6 Immature Gran % 0.7 Neutrophils % 59.0 Lymphocytes % 30.6 Monocytes % 8.3 Eosinophils % 0.8 Basophils % 0.6 Nucleated RBC % (0.0-0.3) % 0.0 Absolute Neutrophils (1.2-6.7) 10^3/uL 4.90 Absolute Lymphocytes (1.2-3.4) 10^3/uL 2.55 Absolute Monocytes (0.1-0.8) 10^3/uL 0.69 Absolute Eosinophils (0.0-0.7) 10^3/uL 0.07 Absolute Basophils (0.0-0.2) 10^3/uL 0.05 VBG pH (7.31-7.41) VBG pCO2 (41-51) mmHg VBG pO2 mmHg VBG HCO3 (23-28) mmol/L VBG Total CO2 (24-29) mmol/L VBG O2 Saturation % VBG Base Excess (-2-3) mmol/L Sodium (136-145) mmol/L 139 Potassium (3.5-5.1) mmol/L 3.6 Chloride (98-107) mmol/L 103 Carbon Dioxide (21.0-32.0) mmol/L 24.4 Anion Gap (3-11) mmol/L 11.6 H BUN (7-18) mg/dL 9 Creatinine (0.70-1.30) mg/dL 1.0 Est GFR (CKD-EPI 2020) (mL/min/1.73m2) 91.69 Glucose (74-106) mg/dL 285 H Calcium (8.5-10.1) mg/dL 8.7 Magnesium (1.8-2.4) mg/dL 2.0 Total Bilirubin (0.2-1.0) mg/dL 0.4 AST (15-37) U/L 34 ALT (16-63) U/L 47 Alkaline Phosphatase (46-116) U/L 93 Total Protein (6.4-8.2) g/dL 7.4 Albumin (3.4-5.0) g/dL 3.7 TSH Salicylates < 2.8 Acetaminophen < 2 Ethyl Alcohol < 3.0 Sign Out <Matt Graham NP - Last Filed: 03/19/23 11:28> Sign Out Data: Sign Out Comment: Patient pending psychiatric exam and disposition based upon psychiatric exam. Differential diagnosis to include altered mental status from unknown cause versus psychiatric delusions/PTSD. Last updated by Matt Graham NP at 03/18/23 16:10 Sign Out Comment: Hx of AMS, IDDDM, HTN, Depression, here with psychotic break Pending Mental Health Re-Eval in am. Last updated by Izabel Orantes NP at 03/18/23 23:26 Sign Out Comment: Patient stable throughout the night. No interventions needed. Last updated by Kamari Abdi DO at 03/19/23 07:39 Sign Out Comment: Patient currently on involuntary hold?-EE in the setting of psychosis and disorganized thinking unable to take care of himself at home. Behavioral health is seeking bed placement. Last updated by Ronny Wang MD at 03/19/23 19:36 Sign Out Comment: Involuntary hold, stable throughout the night. No interventions needed. Last updated by Kamari Abdi DO at 03/20/23 07:25 Sign Out Comment: history of psychotic breaks and here pending second cert for disorganized thought, tangential thoughts, and not caring for himself. At start of shift defecated on the floor then smeared it on the pineda. Last updated by Douglas Galvin MD at 03/20/23 14:16 Sign Out Comment: 52yo M presenting with disorganized behavior, tangential, not caring for himself. Medically cleared. EE and 2nd cert completed. Pending placement. No acute events on my shift. Last updated by Faustina Hunter MD at 03/20/23 23:17 Sign Out Comment: EE for psychotic behavior. Voluntarilty took PO olanzapine and ativan for me this evening as he was not sleeping, pacing, and rubbing poop on the pineda. No other acute events overnight. Last updated by Luis Galvin MD at 03/21/23 04:48
[2023-03-18] MEDS: ACETAMINOPHEN 1,000 MG/100 ML BTL 1000 MG (13:15)
[2023-03-18] MEDS: Ketorolac 15 MG/ML VIAL (13:15)
[2023-03-18] MEDS: Normal Saline 1,000 ML 1000 ML IV (13:15)
[2023-03-18 14:25] LABS: Bilirubin Small (Negative); Blood Trace-intact (Negative); Clarity Sl Cloudy (Clear); Glucose 500 mg/dL (Negative); Ketones 15 mg/dL (Negative); Leukocyte Esterase Negative (Negative); Nitrite Negative (Negative); Specific Gravity >= 1.030 (1.005-1.025); Urobilinogen 0.2 mg/dL (Up to 0.2); pH 5.5 (5-8)
[2023-03-18 14:36] LABS: Bacteria Negative HPF (Negative); C & S Indicated? No; Casts Negative LPF (Negative); Crystals Few Amorphous HPF (Negative); Epithelial Cells Rare HPF (Negative); Mucus Trace (Negative); RBC 0-2 HPF (0-2); WBC 0-2 HPF (0-5)
[2023-03-18 14:44] LABS: *AMPHETAMINES SCREEN URINE Negative (Negative); *BARBITURATES SCREEN URINE Negative (Negative); *BENZODIAZEPINES SCREEN URINE Negative (Negative); Cannabinoids THC Negative (Negative); Cocaine Screen,Urine Negative (Negative); METHADONE URINE SCREEN Negative (Negative); OPIATES URINE SCREEN Negative (Negative)
[2023-03-18 14:48] LABS: Tricyclic Antidepressants Negative (Negative)
[2023-03-18 16:20] VITALS: BP 126/88; PULSE 71; RESP 16; O2SAT 97
[2023-03-18] MEDS: OLANZapine 5 MG TAB PO (17:35)
[2023-03-18 19:25] VITALS: BP 123/85; PULSE 97; RESP 20; TEMP 36.6; O2SAT 95
[2023-03-18 19:26] VITALS: BP 123/85; RESP 20; TEMP 36.6; O2SAT 95
[2023-03-18 22:46] LABS: Ammonia 17 umol/L (11-32)
--- NOTE | 2023-03-19 08:15 | ED.PROG_ITS ---
Date of service: 03/19/23 Time of Service: 08:15 Medical Decision Making I received signout on this 60-year-old patient with history of morbid obesity diabetes who is in the emergency department in the setting of a mental health crisis. He is medically cleared and pending reassessment with [facility]. He is also pending a med reconciliation with [facility] [facility] [place] that he has a history of morbid obesity type 2 diabetes and postoperative ileus. No active behavioral issues last shift. We will update documentation as clinically warranted and sign patient out to the [facility] provider. 11:32AM I spoke to Velasquez from [facility] [employer]. He had a difficult time assessing the patient. He is waiting for the patient's sister and mother. 3:10 PM I spoke again to Velasquez who reported that the patient was still difficult to assess. Per reports from patient's mother and sister this is similar to a prior episode. Velasquez is working on finding [facility]. [facility] 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 I met with the patient and he was perseverating on his urine. He had a disorganized thought pattern. It was difficult to follow his thinking but he said that he had difficulty sitting and wanted to be sure I had access to his urine. He had no pressured speech. He did have flight of ideas. His thought process was nonlinear. He certainly does not seem able to take care of himself. We will attempt to contact the patient's mother but I do anticipate he will meet EE criteria. He is not able to participate in neurological assessment. He has no acute obvious deficits recently do not feel that he is a tPA candidate. My suspicion is low for CVA so I do not feel that he requires an MRI. He is not febrile to suggest need for lumbar puncture.His vital signs were reassuring yesterday. 5:30 PM Repeat vitals are patient shows heart rate is 110 his oxygen saturation 91% on room air his blood pressure is 121/87. He has not had anything to eat since breakfast which he did not finish. We will give him 1 L of fluids and attempt to call his mother, Chloe, at [phone]. Patient's mom reports that he has had similar symptoms for the past 10 years. He has been hospitalized at the [place] in the past but [facility]. He had been diagnosed with severe depression. Not adherent with meds. Also has history of psychotic disorder. Episodes are getting closer together. He reportedly talks about trying to control his body. Has history of anxiety. He reportedly appeared similar to prior episodes. He lives with his mother. It certainly seems as if he is not safe to take care of himself. I will complete the paperwork. 7:33 PM Patient's heart rate normalized with fluids. I completed ED paperwork. We will sign patient out to the [facility] provider, Dr. Abdi. Sign Out Sign Out Data: Sign Out Comment: Patient pending psychiatric exam and disposition based upon psychiatric exam. Differential diagnosis to include altered mental status from unknown cause versus psychiatric delusions/PTSD. Last updated by Matt Graham NP at 03/18/23 16:10 Sign Out Comment: Hx of AMS, IDDDM, HTN, Depression, here with psychotic break Pending Mental Health Re-Eval in am. Last updated by Izabel Orantes NP at 03/18/23 23:26 Sign Out Comment: Patient stable throughout the night. No interventions needed. Last updated by Kamari Abdi DO at 03/19/23 07:39 Discharge Plan Discharge Details Chief Complaint: PsychEval Clinical Impression: Acute psychosis Primary Care Provider: Cristina Paniagua ED Provider: Ronny Wang Home Meds and New Rx's Prescriptions: No Action Kava Kava 500 mg capsule 500 mg PO DAILY meloxicam 7.5 mg tablet 7.5 - 15 mg PO DAILY PRN (Reason: pain) Qty: 30 0RF aspirin 81 mg tablet,delayed release (DR/EC) 81 mg PO DAILY omeprazole 10 mg capsule,delayed release(DR/EC) 10 mg PO DAILY Ozempic 1 mg/dose (4 mg/3 mL) pen injector 1 mg subcut QWEEK lisinopril 10 mg tablet 10 mg PO DAILY fluticasone propionate [Allergy Relief (fluticasone)] 50 mcg/actuation spray,suspension 1 spray intranasal BID Rx Instructions: administer into each nostril acetaminophen 500 mg tablet 500 mg PO BID PRN (Reason: pain) Qty: 180 3RF
[2023-03-19] MEDS: Aspirin 81 MG CHEW CH (10:04)
[2023-03-19] MEDS: Omeprazole 10 MG CAPCR PO (10:11)
[2023-03-19] MEDS: Lisinopril 10 MG TAB PO (10:14)
[2023-03-19 17:18] VITALS: TEMP 37
[2023-03-19 17:26] VITALS: BP 127/81; PULSE 115; RESP 18; TEMP 36.2; O2SAT 90
--- NOTE | 2023-03-19 17:28 | NUR.NOTE ---
Nursing Note: Sister Gail [phone]
[2023-03-19 19:16] VITALS: BP 105/69; PULSE 89; RESP 16; TEMP 36.6; O2SAT 96
[2023-03-19] MEDS: Normal Saline 1,000 ML 1000 ML IV (19:17)
--- NOTE | 2023-03-19 20:26 | PDOC.MHPN2 ---
Date of service: 03/19/23 Time of Service: 15:47 Mental Health Emergency Note Release [facility] release signed:: No Reason for Visit Client presented to [facility] ED on 03/18 for medical reasons as well as altered mental status. Client was assessed 3x by SIMÓN Knapp, however he was unable to get full assessment due to the clients cognitive abilities. This teletypewriter operator assesses the client via zoom to determine if client meets EE criteria. In the last 2 weeks has the pt presented for ES prior to today?: No Impression The client appears to be disheveled and per report of the family the client has not bathed since the start of Summer. Client is observed to be wearing jeans and a t shirt. Client appears to be incoherent and is unable to answer questions that are being asked by this teletypewriter operator. For example: this teletypewriter operator asks the client why he is at the hospital and the client responds: ?my back I need to be able to lay flat for them.? Client?s behavior appears to be dysregulated as he is not able to make decisions or answer questions and his affect appears to be flat and mood is congruent. Client is not oriented to time or self, however is able to state that he is at the hospital in [facility] in room #9. Client appears to be showing poor insight and judgment as evidenced by his inability to answer questions and pacing around the room. Nursing staff at [facility] report that the client?s cognition is so impaired at this time that he will go to the bathroom and will not remember to pull down his pants so he has soiled his clothes. The nursing staff have had to assist the client in pulling down his clothes to be able to go to the bathroom. Due to the clients mental instability and current mental status as well as his current decision making skills, which appear to be impaired put both himself and others at risk at this time if he were to be released from the hospital. Per the report of the client?s family the client?s mental status appears to be altered every 3-6 months for 8-10 days and then he is able to regulate his emotions and answer questions. Client does not follow-through with outpatient services such as therapy and [facility] services and refuses psychiatric medications, which also poses a risk to himself. ? Plan/Disposition Recommended Disposition: Hospitalization No. Plan: EE will be completed for the client. Client will remain at [facility] ED on EE status pending 2nd certification by psychiatrist. Client will be re-assessed by [facility] 2x daily until placement is secured or the clients acuity level decreases and he is able to be safety planned back to the community. Person reported agreement to plan: No Reports/communication Outcome discussed with: ED/Personnel (verbal passover given to [facility] ED staff as the provider was unavailable. )
[2023-03-20 07:44] VITALS: BP 131/80; PULSE 92; RESP 20; TEMP 36.4; O2SAT 94
--- NOTE | 2023-03-20 07:45 | NUR.NOTE ---
Nursing Note: Went to assess pt this am. Pt had a BM on the floor. Stating he forgot how to poop. Pt is minimally responsive to questions and repeatedly states I don't know. Is otherwise laying in bed. VS and FS as charted. Dr. Galvin aware.
--- NOTE | 2023-03-20 07:50 | W.EDPROG ---
Date of service: 03/20/23 Time of Service: 07:51 Medical Decision Making pt signed out to me pending second cert for reported psychosis, pt apparently had a bowel movement on the wall in his room this morning and when asked why he did this he said I forgot how to do it. He has primarily been laying in bed appearing in catatonic per nursing, he is awake and will answer minimal questions with me, will continue to monitor until safe dispo is found Sign Out Sign Out Data: Sign Out Comment: Patient pending psychiatric exam and disposition based upon psychiatric exam. Differential diagnosis to include altered mental status from unknown cause versus psychiatric delusions/PTSD. Last updated by Matt Graham NP at 03/18/23 16:10 Sign Out Comment: Hx of AMS, IDDDM, HTN, Depression, here with psychotic break Pending Mental Health Re-Eval in am. Last updated by Izabel Orantes NP at 03/18/23 23:26 Sign Out Comment: Patient stable throughout the night. No interventions needed. Last updated by Kamari Abdi DO at 03/19/23 07:39 Sign Out Comment: Patient currently on involuntary hold?-EE in the setting of psychosis and disorganized thinking unable to take care of himself at home. Behavioral health is seeking bed placement. Last updated by Ronny Wang MD at 03/19/23 19:36 Sign Out Comment: Involuntary hold, stable throughout the night. No interventions needed. Last updated by Kamari Abdi DO at 03/20/23 07:25 Discharge Plan Discharge Details Chief Complaint: PsychEval Clinical Impression: Acute psychosis Primary Care Provider: Cristina Paniagua ED Provider: Douglas Galvin Home Meds and New Rx's Prescriptions: No Action Kava Kava 500 mg capsule 500 mg PO DAILY meloxicam 7.5 mg tablet 7.5 - 15 mg PO DAILY PRN (Reason: pain) Qty: 30 0RF aspirin 81 mg tablet,delayed release (DR/EC) 81 mg PO DAILY omeprazole 10 mg capsule,delayed release(DR/EC) 10 mg PO DAILY Ozempic 1 mg/dose (4 mg/3 mL) pen injector 1 mg subcut QWEEK lisinopril 10 mg tablet 10 mg PO DAILY fluticasone propionate [Allergy Relief (fluticasone)] 50 mcg/actuation spray,suspension 1 spray intranasal BID Rx Instructions: administer into each nostril acetaminophen 500 mg tablet 500 mg PO BID PRN (Reason: pain) Qty: 180 3RF
[2023-03-20] MEDS: Lisinopril 10 MG TAB PO (08:57)
[2023-03-20] MEDS: Omeprazole 10 MG CAPCR PO (08:57)
[2023-03-20] MEDS: Aspirin 81 MG CHEW CH (08:57)
--- NOTE | 2023-03-20 09:12 | CMSP_ITS ---
Date of service: 03/20/23 Time of Service: 09:13 Care Management Safety Plan Status Status: Involuntary Reason for Wait Reason for Wait: Inpatient Admission Safety Plan Safety Plan: INVOLUNTARY FOR INPATIENT PSYCHIATRIC STABILIZATION. Safety plan has been established to meet the needs of the patient, and consideration of the care team, to adhere to patient goals, identify restrictions based on behavioral status, address nutrition, and determine allowed personal belongings, tools for hygiene and personal care. Determine level of activity including ambulation, level of supervision, visitors, and determine privileges based on behaviors and level of engagement by pt. SAFETY PLAN: 1. Will remain on SI/HI precautions. In Paper Clothes 2. Will remain in room under direct supervision of one-on-one staff at all times provided by [employer]; KAMRAN, TRACTOR TRAILER MOVING VAN DRIVER pharmacy care coordinator. 3. May have paper cups, plates, finger foods as well as a cardboard spoon 4. Follow [facility] Management of the Admitted Behavioral Health Patient policy. 5. Comfort bath system only. 6. No personal belongings 7. Visitors: 8. Activities: 9. Bathroom privileges with supervision 10. Phone: None at this time 11. Due to INVOLUNTARY status, patient is being held at [facility] by the Department of Mental Health ([facility]) until 2nd certification by [facility] Psychiatrist can be performed (within 24 hours). Staff will provide de-escalation support (CPI) as needed. If patient wishes to leave [facility], staff will contact [facility] Crisis Screener ([phone]) and On-Call Polygraph Technician ([phone]) as soon as possible. In the event of elopement, notify [facility] Police ([phone]). Patient is currently involuntarily at [facility]. [facility] Frontline Visual Supervisor will continue seeking placement. Please contact the Motor Vehicle Compliance Analyst Polygraph Technician ([phone]) for any needed changes to Safety Plan. Safety plan has been provided to interdepartmental care team. Patient will be transported by [facility] at time of discharge.
--- NOTE | 2023-03-20 09:12 | PDOC.CMSAFE ---
Date of service: 03/20/23 Time of Service: 09:13 Care Management Safety Plan Status Status: Involuntary Reason for Wait Reason for Wait: Inpatient Admission Safety Plan Safety Plan: INVOLUNTARY FOR INPATIENT PSYCHIATRIC STABILIZATION. Safety plan has been established to meet the needs of the patient, and consideration of the care team, to adhere to patient goals, identify restrictions based on behavioral status, address nutrition, and determine allowed personal belongings, tools for hygiene and personal care. Determine level of activity including ambulation, level of supervision, visitors, and determine privileges based on behaviors and level of engagement by pt. SAFETY PLAN: 1. Will remain on SI/HI precautions. In Paper Clothes 2. Will remain in room under direct supervision of one-on-one staff at all times provided by [employer]; KAMRAN, CONTINUOUS IMPROVEMENT BLACK BELT clinical data management director. 3. May have paper cups, plates, finger foods as well as a cardboard spoon 4. Follow [facility] Management of the Admitted Behavioral Health Patient policy. 5. Comfort bath system only. 6. No personal belongings 7. Visitors: 8. Activities: 9. Bathroom privileges with supervision 10. Phone: None at this time 11. Due to INVOLUNTARY status, patient is being held at [facility] by the Department of Mental Health ([facility]) until 2nd certification by [facility] Psychiatrist can be performed (within 24 hours). Staff will provide de-escalation support (CPI) as needed. If patient wishes to leave [facility], staff will contact [facility] Crisis Screener ([phone]) and On-Call Blade Groover ([phone]) as soon as possible. In the event of elopement, notify [facility] Police ([phone]). Patient is currently involuntarily at [facility]. [facility] Frontline Vocational Aide will continue seeking placement. Please contact the Segregator Blade Groover ([phone]) for any needed changes to Safety Plan. Safety plan has been provided to interdepartmental care team. Patient will be transported by [facility] at time of discharge.
--- NOTE | 2023-03-20 15:51 | W.EDPROG ---
Date of service: 03/20/23 Time of Service: 15:51 Medical Decision Making This patient was signed out to me. Please see previous notes for H&P and initial eval. In brief, 52yo M presenting with acute psychosis, disorganization, EE paperwork filled out, 2nd cert pending. 2nd cert completed. No acute events on my shift. Patient remains disorganized. Signed out to oncoming physician, pending placement. Lab Data Lab results reviewed: Yes I reviewed the patient's lab results. Sign Out Sign Out Data: Sign Out Comment: Patient pending psychiatric exam and disposition based upon psychiatric exam. Differential diagnosis to include altered mental status from unknown cause versus psychiatric delusions/PTSD. Last updated by Matt Graham NP at 03/18/23 16:10 Sign Out Comment: Hx of AMS, IDDDM, HTN, Depression, here with psychotic break Pending Mental Health Re-Eval in am. Last updated by Izabel Orantes NP at 03/18/23 23:26 Sign Out Comment: Patient stable throughout the night. No interventions needed. Last updated by Kamari bAdi DO at 03/19/23 07:39 Sign Out Comment: Patient currently on involuntary hold?-EE in the setting of psychosis and disorganized thinking unable to take care of himself at home. Behavioral health is seeking bed placement. Last updated by Ronny Wang MD at 03/19/23 19:36 Sign Out Comment: Involuntary hold, stable throughout the night. No interventions needed. Last updated by Kamari Abdi DO at 03/20/23 07:25 Sign Out Comment: history of psychotic breaks and here pending second cert for disorganized thought, tangential thoughts, and not caring for himself. At start of shift defecated on the floor then smeared it on the pineda. Last updated by Douglas Galvin MD at 03/20/23 14:16 Sign Out Comment: 52yo M presenting with disorganized behavior, tangential, not caring for himself. Medically cleared. EE and 2nd cert completed. Pending placement. No acute events on my shift. Last updated by Faustina Hunter MD at 03/20/23 23:17 Discharge Plan Discharge Details Chief Complaint: PsychEval Clinical Impression: Acute psychosis Primary Care Provider: Siva,Cristina ED Provider: Faustina Hunter Home Meds and New Rx's Prescriptions: No Action Kava Kava 500 mg capsule 500 mg PO DAILY meloxicam 7.5 mg tablet 7.5 - 15 mg PO DAILY PRN (Reason: pain) Qty: 30 0RF aspirin 81 mg tablet,delayed release (DR/EC) 81 mg PO DAILY omeprazole 10 mg capsule,delayed release(DR/EC) 10 mg PO DAILY Ozempic 1 mg/dose (4 mg/3 mL) pen injector 1 mg subcut QWEEK lisinopril 10 mg tablet 10 mg PO DAILY fluticasone propionate [Allergy Relief (fluticasone)] 50 mcg/actuation spray,suspension 1 spray intranasal BID Rx Instructions: administer into each nostril acetaminophen 500 mg tablet 500 mg PO BID PRN (Reason: pain) Qty: 180 3RF
--- NOTE | 2023-03-20 23:38 | NUR.NOTE ---
Stretcher removed from pt room d/t pt pulling at the IV pole attached to the bed. Pt appears to be trying to detach pole. Mattress placed on floor for pt/staff safety. Room removed of all tables, trash cans, other objects. Pt on commode when this RN left pt room. Pt remains 1:1 w CPSO. Will continue to monitor per protocol.
[2023-03-21] MEDS: LORazepam 1 MG TAB 2 MG PO (01:25)
[2023-03-21] MEDS: OLANZapine 10 MG TAB PO (01:26)
--- NOTE | 2023-03-21 04:44 | ED.PROG_ITS ---
Date of service: 03/21/23 Time of Service: 04:44 Medical Decision Making I, Luis Glenis, took signout on this patient. In summary 52-year-old male presents with acute psychosis. Long history of this. Was complaining of some back pain and got some imaging including CT head and lumbar spine that were unremarkable. Labs also unremarkable. He is still acutely psychotic. Has actually pooped in the room a few times and smeared on the pineda. He voluntarily took 10 of olanzapine and 2 of Ativan overnight orally for sleep as he was pacing and psychotic and difficult to redirect. Otherwise no acute events overnight. Signed out to the oncoming team in the a.m. pending psychiatric bed search. Sign Out Sign Out Data: Sign Out Comment: Patient pending psychiatric exam and disposition based upon psychiatric exam. Differential diagnosis to include altered mental status from unknown cause versus psychiatric delusions/PTSD. Last updated by Matt Graham NP at 03/18/23 16:10 Sign Out Comment: Hx of AMS, IDDDM, HTN, Depression, here with psychotic break Pending Mental Health Re-Eval in am. Last updated by Izabel Orantes NP at 03/18/23 23:26 Sign Out Comment: Patient stable throughout the night. No interventions needed. Last updated by Kamari Abdi DO at 03/19/23 07:39 Sign Out Comment: Patient currently on involuntary hold?-EE in the setting of psychosis and disorganized thinking unable to take care of himself at home. Behavioral health is seeking bed placement. Last updated by Ronny Wang MD at 03/19/23 19:36 Sign Out Comment: Involuntary hold, stable throughout the night. No interventions needed. Last updated by Kamari Abdi DO at 03/20/23 07:25 Sign Out Comment: history of psychotic breaks and here pending second cert for disorganized thought, tangential thoughts, and not caring for himself. At start of shift defecated on the floor then smeared it on the pineda. Last updated by Douglas Galvin MD at 03/20/23 14:16 Sign Out Comment: 52yo M presenting with disorganized behavior, tangential, not caring for himself. Medically cleared. EE and 2nd cert completed. Pending placement. No acute events on my shift. Last updated by Faustina Hunter MD at 03/20/23 23:17 Discharge Plan Discharge Details Chief Complaint: PsychEval Clinical Impression: Acute psychosis Primary Care Provider: Cristina Paniagua ED Provider: Luis Galvin [place] Meds and New Rx's Prescriptions: No Action Kava Kava 500 mg capsule 500 mg PO DAILY meloxicam 7.5 mg tablet 7.5 - 15 mg PO DAILY PRN (Reason: pain) Qty: 30 0RF aspirin 81 mg tablet,delayed release (DR/EC) 81 mg PO DAILY omeprazole 10 mg capsule,delayed release(DR/EC) 10 mg PO DAILY Ozempic 1 mg/dose (4 mg/3 mL) pen injector 1 mg subcut QWEEK lisinopril 10 mg tablet 10 mg PO DAILY fluticasone propionate [Allergy Relief (fluticasone)] 50 mcg/actuation spray,suspension 1 spray intranasal BID Rx Instructions: administer into each nostril acetaminophen 500 mg tablet 500 mg PO BID PRN (Reason: pain) Qty: 180 3RF
--- NOTE | 2023-03-21 09:16 | CMSP_ITS ---
Date of service: 03/21/23 Time of Service: 09:17 Care Management Safety Plan Status Status: Involuntary Reason for Wait Reason for Wait: Inpatient Admission Safety Plan Safety Plan: Safety plan?has been established to meet the needs of the patient, and consideration of the care team, to adhere to patient goals, identify restrictions based on behavioral status, address nutrition, and determine allowed personal belongings, tools for hygiene and personal care. Determine level of activity including ambulation, level of supervision, visitors, and det ermine privileges based on behaviors and level of engagement by pt. SAFETY PLAN: 1. Will remain on SI/HI precautions. In Paper Clothes. 2. Will remain in room under direct supervision of one-on-one staff at all times provided by CPSO, MACHINE SHORTHAND REPORTER, PROCESS SAFETY SPECIALIST legal word processor. 3. May have paper cups, plates, finger foods as well as a cardboard spoon to eat meals with. 4. Follow [facility] Management of the Admitted Behavioral Health Patient policy. 5. Comfort bath system only. 6. No personal belongings 7. Visitors: None at this time. 8. Activities: Soft cart items, television and other activities at RN discretion. 9.?Bathroom privileges with supervision 10. Phone: None at this time 11. Due to INVOLUNTARY status, patient is being held at [facility] by the Department of Mental Health ([facility]). A 2nd certification by [facility] Psychiatrist was performed and the EE status has been upheld. Staff will provide de-escalation support (CPI) as needed. If patient wishes to leave [facility], staff will contact [facility] Crisis Screener ([phone]) and On-Call Wharfinger Chief ([phone]) as soon as possible. In the event of elopement, notify [place] [employer] Police ([phone]). Patient is currently involuntarily at [facility]. [facility] Frontline Senior Drupal Developer will continue seeking placement. Please contact the Residential Field Manager Wharfinger Chief ([phone]) for any needed changes to Safety Plan. Safety plan has been provided to interdepartmental care team. Patient will be transported by [employer] at time of discharge.
--- NOTE | 2023-03-21 09:16 | PDOC.CMSAFE ---
Date of service: 03/21/23 Time of Service: 09:17 Care Management Safety Plan Status Status: Involuntary Reason for Wait Reason for Wait: Inpatient Admission Safety Plan Safety Plan: Safety plan?has been established to meet the needs of the patient, and consideration of the care team, to adhere to patient goals, identify restrictions based on behavioral status, address nutrition, and determine allowed personal belongings, tools for hygiene and personal care. Determine level of activity including ambulation, level of supervision, visitors, and determine privileges based on behaviors and level of engagement by pt. SAFETY PLAN: 1. Will remain on SI/HI precautions. In Paper Clothes. 2. Will remain in room under direct supervision of one-on-one staff at all times provided by [employer]PSO, HAND METHOD LASTING MACHINE OPERATOR, NUDE MODEL dry kiln operator helper. 3. May have paper cups, plates, finger foods as well as a cardboard spoon to eat meals with. 4. Follow [facility] Management of the Admitted Behavioral Health Patient policy. 5. Comfort bath system only. 6. No personal belongings 7. Visitors: None at this time. 8. Activities: Soft cart items, television and other activities at RN discretion. 9.?Bathroom privileges with supervision 10. Phone: None at this time 11. Due to INVOLUNTARY status, patient is being held at [facility] by the Department of Mental Health ([facility]). A 2nd certification by [facility] Psychiatrist was performed and the EE status has been upheld. Staff will provide de-escalation support (CPI) as needed. If patient wishes to leave [facility], staff will contact [facility] Crisis Screener ([phone]) and On-Call Director Of Consulting Services ([phone]) as soon as possible. In the event of elopement, notify [place] [employer] Police ([phone]). Patient is currently involuntarily at [facility]. [facility] Frontline Stake Driver will continue seeking placement. Please contact the Mobile Home Set Up Person Director Of Consulting Services ([phone]) for any needed changes to Safety Plan. Safety plan has been provided to interdepartmental care team. Patient will be transported by [employer] at time of discharge.
--- NOTE | 2023-03-21 11:02 | NUR.NOTE ---
Nursing Note: this RN took patient to use toilet. Patient needed cueing to flush toilet and wash hands
[2023-03-21] MEDS: Omeprazole 10 MG CAPCR PO (11:12)
[2023-03-21] MEDS: Lisinopril 10 MG TAB PO (11:12)
[2023-03-21] MEDS: Aspirin 81 MG CHEW CH (11:12)
[2023-03-21] MEDS: Fluticasone NASAL SPRAY 16 GM BTL NS (11:12)
--- NOTE | 2023-03-21 11:40 | MHPN_ITS ---
Date of service: 03/21/23 Time of Service: 10:50 Mental Health Emergency Note Release [facility] release signed:: Yes Reason for Visit Client presented to [facility] ED on 03/18/23 with family members due to altered mental status. Client is currently being held on involuntary status. This film writer assessed the client in person at [facility] ED for his first [facility] assessment of the day. In the last 2 weeks has the pt presented for ES prior to today?: No Impression Client presents laying down on mattress that is placed on the floor. Per this writers conversation with hospital staff the bed was removed from the clients room this morning after he was attempting to take the IV pole off from the bed. Client is dressed in proper paper hospital attire and is sleeping when this film writer arrives in person. Client is woken up by this film writer. Clients speech appears to be improving mildly, however he is continuing to fixate on I can't I can't I can't. This film writer asks the client if he is currently endorsing suicidal or homicidal ideation and the client is able to state: No I never have, that is why I am here. Although the clients mental status seems to be slowly improving the client still appears to be confused and is fixated on I can't I can't I can't and going to the bathroom. Plan/Disposition Recommended Disposition: Hospitalization facilities contacted. Plan: Client will remain at [facility] ED on involuntary status pending admission to an inpatient facility. This film writer has consulted with [facility], who are working towards admission of the client today to a level one bed if there is capacity to be able to take him. Client will be re-assessed daily by [facility] until placement is secured. Facilities contacted if Applicable [facility] Accepted, Accepted/transfer pending. [facility]: [facility] Not accepted, No bed available [facility] Not accepted, No bed available, [facility] Not accepted, No bed available Reports/communication Outcome discussed with: ED/Personnel (Verbal passover given to [facility] ED provider Dr. Abdi. )
--- NOTE | 2023-03-21 11:40 | PDOC.MHPN2 ---
Date of service: 03/21/23 Time of Service: 10:50 Mental Health Emergency Note Release [facility] release signed:: Yes Reason for Visit Client presented to [facility] ED on 03/18/23 with family members due to altered mental status. Client is currently being held on involuntary status. This specification writer assessed the client in person at [facility] ED for his first [facility] assessment of the day. In the last 2 weeks has the pt presented for ES prior to today?: No Impression Client presents laying down on mattress that is placed on the floor. Per this writers conversation with hospital staff the bed was removed from the clients room this morning after he was attempting to take the IV pole off from the bed. Client is dressed in proper paper hospital attire and is sleeping when this specification writer arrives in person. Client is woken up by this specification writer. Clients speech appears to be improving mildly, however he is continuing to fixate on I can't I can't I can't. This specification writer asks the client if he is currently endorsing suicidal or homicidal ideation and the client is able to state: No I never have, that is why I am here. Although the clients mental status seems to be slowly improving the client still appears to be confused and is fixated on I can't I can't I can't and going to the bathroom. Plan/Disposition Recommended Disposition: Hospitalization facilities contacted. Plan: Client will remain at [facility] ED on involuntary status pending admission to an inpatient facility. This specification writer has consulted with [facility], who are working towards admission of the client today to a level one bed if there is capacity to be able to take him. Client will be re-assessed daily by [facility] until placement is secured. Facilities contacted if Applicable [facility] Accepted, Accepted/transfer pending. [facility]: [facility] Not accepted, No bed available [facility] Not accepted, No bed available, [facility] Not accepted, No bed available Reports/communication Outcome discussed with: ED/Personnel (Verbal passover given to [facility] ED provider Dr. Abdi. )
--- NOTE | 2023-03-21 12:17 | W.EDPROG ---
Date of service: 03/21/23 Time of Service: 12:17 Medical Decision Making Patient was signed out to me by my colleagues on multiple very signout. Please refer to the previous HPI's, physical exam and assessment and plan. We are pending placement for his continued psychotic breakdown component. Patient remained stable. He still demonstrates slightly atypical mental status. No focal neurologic deficits on my most recent reassessment. He still is notably nonviolent. He is calm and redirectable. Discussed the case with psychiatrist Dr. Smith at [facility]. She agrees for transfer. I have extensively reviewed the treatment plan with the patient. I have addressed all patient concerns at this time. I have also discussed the plan with the admitting physician and they agree with the current assessment and plan and have agreed to assume responsibility for the patient. All parties demonstrate verbal understanding and agreement with our assessment and plan at this time. The documentation in this chart was dictated using [employer] dictation software. Please excuse any dictation errors. At time of transfer the patient was reassessed and continued to demonstrate No signs of acute respiratory distress requiring intubation, hemodynamic instability requiring pressor support, or rapidly declining mental status. Sign Out Sign Out Data: Sign Out Comment: Patient pending psychiatric exam and disposition based upon psychiatric exam. Differential diagnosis to include altered mental status from unknown cause versus psychiatric delusions/PTSD. Last updated by Matt Graham NP at 03/18/23 16:10 Sign Out Comment: Hx of AMS, IDDDM, HTN, Depression, here with psychotic break Pending Mental Health Re-Eval in am. Last updated by Izabel Orantes NP at 03/18/23 23:26 Sign Out Comment: Patient stable throughout the night. No interventions needed. Last updated by Kamari Abdi DO at 03/19/23 07:39 Sign Out Comment: Patient currently on involuntary hold?-EE in the setting of psychosis and disorganized thinking unable to take care of himself at home. Behavioral health is seeking bed placement. Last updated by Ronny Wang MD at 03/19/23 19:36 Sign Out Comment: Involuntary hold, stable throughout the night. No interventions needed. Last updated by Kamari Abdi DO at 03/20/23 07:25 Sign Out Comment: history of psychotic breaks and here pending second cert for disorganized thought, tangential thoughts, and not caring for himself. At start of shift defecated on the floor then smeared it on the pineda. Last updated by Douglas Galvin MD at 03/20/23 14:16 Sign Out Comment: 52yo M presenting with disorganized behavior, tangential, not caring for himself. Medically cleared. EE and 2nd cert completed. Pending placement. No acute events on my shift. Last updated by Faustina Hunter MD at 03/20/23 23:17 Sign Out Comment: EE for psychotic behavior. Voluntarilty took PO olanzapine and ativan for me this evening as he was not sleeping, pacing, and rubbing poop on the pineda. No other acute events overnight. Last updated by Luis Galvin MD at 03/21/23 04:48 Discharge Plan Disposition Patient Disposition: Psychiatric Hospital/Unit Specific Psychiatric Facility: [facility] Condition: Improving Discharge Details Chief Complaint: PsychEval Clinical Impression: Acute psychosis Primary Care Provider: Cristina Paniagua ED Provider: Kamari Abdi [facility] Meds and New Rx's Prescriptions: No Action Kava Kava 500 mg capsule 500 mg PO DAILY meloxicam 7.5 mg tablet 7.5 - 15 mg PO DAILY PRN (Reason: pain) Qty: 30 0RF aspirin 81 mg tablet,delayed release (DR/EC) 81 mg PO DAILY omeprazole 10 mg capsule,delayed release(DR/EC) 10 mg PO DAILY Ozempic 1 mg/dose (4 mg/3 mL) pen injector 1 mg subcut QWEEK lisinopril 10 mg tablet 10 mg PO DAILY fluticasone propionate [Allergy Relief (fluticasone)] 50 mcg/actuation spray,suspension 1 spray intranasal BID Rx Instructions: administer into each nostril acetaminophen 500 mg tablet 500 mg PO BID PRN (Reason: pain) Qty: 180 3RF
--- NOTE | 2023-03-21 14:16 | PDOC.CMPRO ---
Date of service: 03/21/23 Time of Service: 14:17 Care Management Progress Note Progress Note Text Progress Note Text: S/O: Julito is sitting on the floor when comes to meet with him. He talks at great length about his back and other medical problems. He shares his mother and sister help him at home and says he doesn't have anyone to help him at the hospital, though admits nurses help him as needed. His affect is flat and his speech is robotic. He makes intermittent eye contact and easily engages in conversation. A: Julito is a 52 year old male who presented in the ED on 03/18/23 for a psychotic break. P: Julito has been accepted by the [facility] for an involuntary placement. He will follow up with [facility], community providers, and plan of care as instructed upon discharge from the [facility]. He will be transported to [place] by a transport team, as arranged by the [place] [facility]. Status Status: Involuntary Reason for Wait: Inpatient Admission ([facility])
--- NOTE | 2023-03-21 18:24 | NUR.NOTE ---
Accessed chart to tell [facility] what time PT was transferred. CM EDNursing Note:
== END 2023-03-21 15:59 ==
PROVIDERS: Nurse Practitioner Family; Registered Nurse Emergency; Emergency Provider Student in an Organized Health Care Education/Training Program; PCP Nurse Practitioner Family
DX: F23 Brief psychotic disorder (principal); E11.65 Type 2 diabetes mellitus with hyperglycemia; R06.02 Shortness of breath; E78.5 Hyperlipidemia, unspecified; I10 Essential (primary) hypertension; Z79.4 Long term (current) use of insulin; Z98.1 Arthrodesis status
CPT/HCPCS: 36415; 80053; 80307; 82805; 96361; 96374; 96375; 99284; 70450; 72131; 80320; 80329; 81003; 81015; 82140; 83735; 84443; 85025; J0131; J1885